=== PATIENT | female | born 2005 | race Caucasian/White ===

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

== ENCOUNTER 2025-03-14 10:58 | Outpatient (AMB) | payer OTHER, SELFPAY ==
--- NOTE | 2025-03-14 11:10 | MHC.OFFVIS ---
Vital Signs 03/14/25 11:11 Height 5 ft 7 in Weight 120 lb 5.958 oz BMI 18.9 BP 110/62 Blood Pressure Location Lt brachial Position Sitting Pulse 114 H Pulse Source Monitor Intake Visit Reasons: CHANGE CONTROL COORDINATOR/Dr. Swan/New onset tachycardia Intake Note: CHANGE CONTROL COORDINATOR/Beny/ New onset Tachy Inside Outside Sales Representative Required: No Accompanied by: Self / Same As Patient Allergies Penicillins Allergy (Severe, Verified 03/14/25 11:13) Anaphylaxis Medication List - Last Reconciled 03/14/25 by Bryan Gamino MD multivitamin 1 tab PO DAILY HPI Comments Details: 20-year-old female here for sinus tachycardia. She has been diagnosed with sinus tachycardia recently. This was during an office visit. She was initially asymptomatic but started feeling some palpitations afterwards. She has been watching her heart rate with Apple watch. She said when it started she had a COVID episode few weeks before that. She had approximately 3 episodes of COVID-19 infection. She occasionally gets dizzy and lightheaded. She is denying any chest discomfort but notices that when she exercises she gets out of breath. She is a student and is studying [employer] sciences. She said she lost weight approximately 2 years ago but never gained it back. She has some joint pains and her primary has refer her to rheumatology for further assessment. Her blood workup showed no anemia. Her thyroid profile is normal. [facility] Family History Maternal Grandfather Heart failure Bypass graft stenosis Social History Alcohol intake: never Patient Tobacco Use Status: Never used Tobacco Review of Systems Const Denies chills, Denies fatigue, Denies fever(s), Denies frequent falls, Denies weakness, Denies weight gain and Denies weight loss ENT Denies dizziness Card Denies chest pain, Denies leg edema, Denies lightheadedness, Denies palpitations, Denies dyspnea, Denies dyspnea on exertion and Denies orthopnea Resp Denies cough, Denies dyspnea and Denies dyspnea on exertion GI Denies bloating and Denies change in bowel habits Musc Denies muscle weakness, Denies numbness and Denies tingling Neuro Denies dizziness, Denies frequent falls, Denies numbness, Denies tingling and Denies weakness Endo Denies fatigue and Denies palpitations Physical Exam Vital Signs: Last Vital Signs Pulse 114 H 03/14/25 11:11 BP 110/62 03/14/25 11:11 BMI result Body Mass Index 18.9 GENERAL APPEARANCE: in no acute distress, anxious appearing. NECK: no carotid bruit, no jugular venous distention. SKIN: no suspicious lesions, warm and dry. HEART: no murmurs, regular rate and rhythm. LUNGS: clear to auscultation bilaterally. ABDOMEN: soft, nontender. EXTREMITIES: no edema. sweaty palms. PERIPHERAL PULSES: equal. NEUROLOGIC: No gross deficits, AAO X 3 Office Procedures EKG Details: Sinus tachycardia 114 beats per minute right axis deviation, nonspecific ST-T changes, QTC 427 milliseconds. 46877-[id number], Complete Assessment & Plan Assessment & Plan (1) Sinus tachycardia: Code(s): R00.0 - Tachycardia, unspecified Category: Medical (2) Palpitations: Code(s): R00.2 - Palpitations Category: Medical Plan Pleasant 20-year-old female here for tachycardia. Her EKGs showing sinus tachycardia with nonspecific T-wave changes. She does not have any chest discomfort. She has some dyspnea with activities. Off and on she gets dizziness. She notices that when she stands up her heart rate races further but it recovers quickly. She is saying that she hydrate herself. She had COVID-19 infection recently. I will check echocardiogram to assess LV and RV function. We will also arrange a 7 day Holter monitor to assess for any arrhythmia. We will also see if her heart rate changes in sleep or not. If she in fact has inappropriate sinus tachycardia then we can consider medications. I have advised her that she should increase her fluid intake and salt intake. I have also advised her to start exercising regularly and in particular do upright exercise like rowing machine. She will see us back in 3 months. Thank you for allowing me to participate in the care of your patient. Please feel free to contact me if you have any questions. Orders: Orders CA echo transthoracic complete Today R00.2 - Palpitations ECG 7 day holter monitor Today R00.2 - Palpitations Medications: Discontinued ondansetron Discontinued Reason: Patient no longer taking 4 mg PO Q6-8H PRN 7 tabs 0RF nausea and vomiting oxycodone Discontinued Reason: Patient no longer taking 2.5 mg (1/2 x 5 mg) PO BID PRN 6 caps 0RF pain prednisone Discontinued Reason: Patient no longer taking 30 mg (3 x 10 mg) PO DAILY 4 days 12 tabs 0RF tamsulosin (Flomax) Discontinued Reason: Patient no longer taking 0.4 mg PO DAILY 5 caps 0RF Coding Level of Care Code New Pt Level 4 (31352) Diagnoses Sinus tachycardia R00.0 Palpitations R00.2 CPT Codes EKG - CPT: 60593-[id number], Complete ([id number])
[2025-03-14 11:11] VITALS: BP 110/62; PULSE 114; BMI 18.9
--- OUTSIDE RECORDS SUMMARY | 2025-03-14 13:54 | XMS_ITS | Encounter Summary ---
Author Organization [facility] Address [address] [place] [address] Phone Care Team Providers Care Rubber Curer Name Role Phone Lisa Riggins MD Primary Care Provider [phone] Encounter Details Date Type Department Care Team (Late st Contact Info) Description 10/19/2014 Documentation [facility] [place] Family Medicine [address] [place] [address] Family Medicine, Physician [address] [place], [place] [address] Social History Tobacco Use Types Packs/Day Years [...] on filedocumented in this encounter Care Teams Rubber Curer Relationship Specialty Start Date End Date Lisa Riggins MD [address] [place] [address] DEANNA Devine [address] PCP - General 12/25/16 10/14/21 documented as of this encounter
--- OUTSIDE RECORDS SUMMARY | 2025-03-14 13:54 | XMS_ITS | Encounter Summary ---
Author Organization [facility] Address [address] [place] [address] Phone Care Team Providers Care Patrol Inspector Name Role Phone Lisa Riggins MD Primary Care Provider [phone] Encounter Details Date Type Department Care Team (Late st Contact Info) Description 10/19/2014 Documentation [facility] [place] Family Medicine [address] [place] [address] Family Medicine, Physician [address] [place], [place] [address] Social History Tobacco Use Types Packs/Day Years [...] on filedocumented in this encounter Care Teams Patrol Inspector Relationship Specialty Start Date End Date Lisa Riggins MD [address] [place] [address] DEANNA Devine [address] PCP - General 12/25/16 10/14/21 documented as of this encounter
--- OUTSIDE RECORDS SUMMARY | 2025-03-14 13:55 | XMS_ITS | Encounter Summary ---
Author Organization [facility] Address [address] [place] [address] Phone Care Team Providers Care Printer Floor Covering Assistant Name Role Phone Lisa Riggins MD Primary Care Provider [phone] Encounter Details Date Type Department Care Team (Late st Contact Info) Description 10/25/2015 [place] [facility] [place] [address] [place] [address] Family Medicine, Physician [address] [place], [place] [address] Social History Tobacco Use Types Packs/Day Years [...] on filedocumented in this encounter Care Teams Printer Floor Covering Assistant Relationship Specialty Start Date End Date Lisa Riggins MD [address] [place] [address] DEANNA Devine [address] PCP - General 12/25/16 10/14/21 documented as of this encounter
--- OUTSIDE RECORDS SUMMARY | 2025-03-14 13:55 | XMS_ITS | Encounter Summary ---
Author Organization [facility] Address [address] [place] [address] Phone Care Team Providers Care Refurbish Technician Name Role Phone Lisa Riggins MD Primary Care Provider [phone] Encounter Details Date Type Department Care Team (Late st Contact Info) Description 03/03/2012 Documentation [facility] [place] Family Medicine [address] [place] [address] Family Medicine, Physician [address] [place], [place] [address] Social History Tobacco Use Types Packs/Day Years [...] on filedocumented in this encounter Care Teams Refurbish Technician Relationship Specialty Start Date End Date Lisa Riggins MD [address] [place] [address] DEANNA Devine [address] PCP - General 12/25/16 10/14/21 documented as of this encounter
--- OUTSIDE RECORDS SUMMARY | 2025-03-14 13:55 | XMS_ITS | Patient Health Record ---
Author Organization [facility] Address [address] [place] [address] Care Team Providers Care Special Librarian Name Role Phone RONNIE MARTINEZ M.D Primary Care Provider Neena Germain Unavailable [phone] Allergies Allergen (clinical drug ingredient) Drug/Non Drug Allergy documented on EMR Reaction Allergy Type Onset Date Status Penicillin Unknown Drug Allergy Active Results Component Value Reference Range Notes Urinalysis Reviewed date:01/12/2025 02:13:57 PM Interpretation: Performing Lab: Notes/Report: PH 8.0 PROTEIN Trace GLUCOSE Neg BLOOD Neg Reason For Referral No Information Medications Medication SIG (Take, Route, Fr equency, Duration) Notes Start Date End Date Status Depo-Provera 150 MG/ML 150 MG Intramuscu lar EVERY 3 MONTHS; Duration: 90 days 01/13/2024 Active Multi-Vitamin - 1 tablet Orally Once a day Active Social History Tobacco Use: Social History [...] Status W/U Status Risk Notes Problem Dysmenorrhea ([id number]) Dysmenorrhea, unspecified (N94.6) Active confirmed Vital Signs Temperature 97.9 degrees Fahrenheit 01/12/2025 Blood pressure diastolic 72 mm Hg 01/12/2025 Height 66 in 01/12/2025 BMI Percentile 29.89 % 01/12/2025 Blood pressure systolic 122 mm Hg 01/12/2025 Weight 125 lbs 01/12/2025 BMI 20.17 kg/m2 01/12/2025 Encounters Encounter Location Date Provider Diagnosis [address] [address] 11/24/2024 Neena Danielle Encounter for surveillance of injectable contraceptive Z30.[address] [address] 01/12/2025 Neena Danielle Encounter for gynecological examination (general) (routine) without abnormal findings Z01.419 ; Encounter for surveillance of contraceptives, unspecified Z30.40 ; Dysmenorrhea, unspecified N94.6 and Other specified counseling Z71.[address] [address] 03/05/2025 Neena Danielle Dysmenorrhea, unspecified N94.6 Assessments Encounter Date Diagnosis (ICD Code) Assessment Notes Treatment Notes Treatment Clinical Notes Section Notes 11/24/2024 Encounter for surveillance of injectable contraceptive (ICD-10 - Z30.42) 01/12/2025 Encounter for gynecological examination (general) (routine) without abnormal findings (ICD-10 - Z01.419) NO PAP TEST YET. ADEQUATE CALCIUM AND VIT D. REGULAR EXERCISE WAS RECOMMENDED. PELVIC ULTRASOUND WAS ORDERED TO CHECK UTERUS AND OVARIES. 03/05/2025 Dysmenorrhea, unspecified (ICD-10 - N94.6) 01/12/2025 Encounter for surveillance of contraceptives, unspecified (ICD-10 - Z30.40) GAURAV HAS NEVER BEEN SEXUALLY ACTIVE AND DOES NOT NEED CONTRACEPTION AT THE PRESENT TIME. NEED FOR CONTRACETION WAS DISCUSSED WITH GAURAV. SHE WILL CALL US WHEN SHE BECOMES ACTIVE. 01/12/2025 Dysmenorrhea, unspecified (ICD-10 - N94.6) DISCUSSED [place] OPTIONS FOR DYSMENORRHEA. ADVISED GAURAV TO TAKE IBUPROFEN IMMEDIATELY WHEN SHE HAS ANY TWINGES OF PAIN. RECOMMENDED SHE CONSIDER CONTINUOUS OCP'S WHICH WILL ALSO PREVENT MENSES AND AVOID DYSMENORRHEA. SHE AGREED TO TRY. SHE WILL RETURN IN APR WHEN DEPO PROVERA SHOT IN FEB IS ABOUT TO AND WE WILL START OCP'S. I PLAN TO START HER ON KARIVA AND WILL GIVE HER DETAILED INSTRUCTIONS ON HOW TO GRADUALLY TAKE THIS CONTINUOUSLY. 01/12/2025 Other specified counseling (ICD-10 - Z71.89) SAFE SEX AND CAREFUL PARTNER SELECTION WERE DISCUSSED. Plan Of Treatment Pending Test Test Name Order Date Ultrasound : Pelvic 03/05/2025 Next Appt Details Provider Name:Neena murdock, 05/09/2025 10:20:00 AM, [address], [address], [place], [address], Provider Name:Neena murdock, 01/18/2026 01:40:00 PM, [address], [address], [place], [address], Insurance Providers Payer Name Payer Address Payer Phone Subscriber Number Group Number Insured Name Patient Relationship to Insured Coverage Start Date Coverage End Date [employer] [facility] [address] [address] [place] [address] [id number] BATSHEVA MARTÍNEZ Child - Insured has Financial Responsibility Medications Administered Medication Instructions Date of Administration Dosage Notes DEPO PROVERA 11/24/2024 150 mg Medical (General) History Medical History History ICD Code Cardiac murmur, unspecified R01.1 Dysmenorrhea, unspecified N94.6
--- OUTSIDE RECORDS SUMMARY | 2025-03-14 13:55 | XMS_ITS | Encounter Summary ---
Author Organization [facility] Address [address] [place] [address] Phone Care Team Providers Care Bioassayist Name Role Phone Lisa Riggins MD Primary Care Provider [phone] Encounter Details Date Type Department Care Team (Late st Contact Info) Description 11/18/2010 Documentation [facility] [place] Family Medicine [address] [place] [address] Family Medicine, Physician [address] [place] [address] Social History Tobacco Use Types [...] on filedocumented in this encounter Care Teams Bioassayist Relationship Specialty Start Date End Date Lisa Riggins MD [address] [place] [address] DEANNA Devine [address] PCP - General 12/25/16 10/14/21 documented as of this encounter
--- OUTSIDE RECORDS SUMMARY | 2025-03-14 13:55 | XMS_ITS | Encounter Summary ---
Author Organization [facility] Address [address] [place] [address] Phone Care Team Providers Care Sales Center Associate Name Role Phone Lisa Riggins MD Primary Care Provider [phone] Encounter Details Date Type Department Care Team (Late st Contact Info) Description 06/11/2015 Documentation [facility] [place] [address] [place] [address] Family Medicine, Physician [facility] [address] [place], [place] [address] Social History Tobacco Use Types Packs/Day Years [...] on filedocumented in this encounter Care Teams Sales Center Associate Relationship Specialty Start Date End Date Lisa Riggins MD [address] [place] [address] DEANNA Devine [address] PCP - General 12/25/16 10/14/21 documented as of this encounter
--- OUTSIDE RECORDS SUMMARY | 2025-03-14 13:55 | XMS_ITS | Encounter Summary ---
Author Organization [facility] Address [address] [place] [address] Phone Care Team Providers Care Inside Channel Account Manager Name Role Phone Lisa Riggins MD Primary Care Provider [phone] Encounter Details Date Type Department Care Team (Late st Contact Info) Description 11/12/2011 Documentation [facility] [place] Family Medicine [address] [place] [address] Family Medicine, Physician [address] [place], [place] [address] Social History Tobacco Use Types Packs/Day Years [...] on filedocumented in this encounter Care Teams Inside Channel Account Manager Relationship Specialty Start Date End Date Lisa Riggins MD [address] [place] [address] DEANNA Devine [address] PCP - General 12/25/16 10/14/21 documented as of this encounter
--- OUTSIDE RECORDS SUMMARY | 2025-03-14 13:55 | XMS_ITS | Encounter Summary ---
Author Organization [facility] Address [address] [place] [address] Phone Care Team Providers Care Heel Padder Name Role Phone Lisa Riggins MD Primary Care Provider [phone] Encounter Details Date Type Department Care Team (Late st Contact Info) Description 06/03/2012 Documentation [facility] [place] Family Medicine [address] [place] [address] Family Medicine, Physician [address] [place], [place] [address] Social History Tobacco Use Types Packs/Day Years [...] on filedocumented in this encounter Care Teams Heel Padder Relationship Specialty Start Date End Date Lisa Riggins MD [address] [place] [address] DEANNA Devine [address] PCP - General 12/25/16 10/14/21 documented as of this encounter
--- OUTSIDE RECORDS SUMMARY | 2025-03-14 13:55 | XMS_ITS | Encounter Summary ---
Author Organization [facility] Address [address] [place] [address] Phone Care Team Providers Care Nursing Tech Name Role Phone Lisa Riggins MD Primary Care Provider [phone] Encounter Details Date Type Department Care Team (Late st Contact Info) Description 10/28/2015 Documentation [facility] [place] Family Medicine [address] [place] [address] Family Medicine, Physician [facility] [place], [place] [address] Social History Tobacco Use Types Packs/Day Years [...] on filedocumented in this encounter Care Teams Nursing Tech Relationship Specialty Start Date End Date Lisa Riggins MD [address] [place] [address] DEANNA Devine [address] PCP - General 12/25/16 10/14/21 documented as of this encounter
--- OUTSIDE RECORDS SUMMARY | 2025-03-14 13:55 | XMS_ITS | Encounter Summary ---
Author Organization [facility] Address [address] [place] [address] Phone Care Team Providers Care Track Announcer Name Role Phone Lisa Riggins MD Primary Care Provider [phone] Encounter Details Date Type Department Care Team (Late st Contact Info) Description 09/04/2015 [place]ation [facility] [place] [address] [place] [address] Family Medicine, Physician [facility] [place] [address] Social History Tobacco Use Types Packs/Day Years [...] filedocumented in this encounter Care Teams Track Announcer Relationship Specialty Start Date End Date Lisa Riggins MD [address] [place] [address] DEANNA Devine [address] PCP - General 12/25/16 10/14/21 documented as of this encounter
--- OUTSIDE RECORDS SUMMARY | 2025-03-14 13:55 | XMS_ITS | Encounter Summary ---
Author Organization [facility] Address [address] [place] [address] Phone Care Team Providers Care Basting Marker Name Role Phone Lisa Riggins MD Primary Care Provider [phone] Encounter Details Date Type Department Care Team (Late st Contact Info) Description 11/10/2016 Documentation [facility] [place] Family Medicine [address] [place] [address] Family Medicine, Physician [facility] [place], [place] [address] Social History Tobacco Use Types Packs/Day Years [...] on filedocumented in this encounter Care Teams Basting Marker Relationship Specialty Start Date End Date Lisa Riggins MD [address] [place] [address] DEANNA Devine [address] PCP - General 12/25/16 10/14/21 documented as of this encounter
--- OUTSIDE RECORDS SUMMARY | 2025-03-14 13:55 | XMS_ITS | Encounter Summary ---
Author Organization [facility] Address [address] [place] [address] Phone Care Team Providers Care Diversified Crops Ii Farmworker Name Role Phone Lisa Riggins MD Primary Care Provider [phone] Encounter Details Date Type Department Care Team (Late st Contact Info) Description 10/11/2013 [place]ation [facility] [place] [address] [place] [address] Family Medicine, Physician [address] [place], [place] [address] Social History Tobacco Use Types Packs/Day Years [...] on filedocumented in this encounter Care Teams Diversified Crops Ii Farmworker Relationship Specialty Start Date End Date Lisa Riggins MD [address] [place] [address] DEANNA Devine [address] PCP - General 12/25/16 10/14/21 documented as of this encounter
--- OUTSIDE RECORDS SUMMARY | 2025-03-14 13:55 | XMS_ITS | Encounter Summary ---
Author Organization [facility] Address [address] [place] [address] Phone Care Team Providers Care Concrete Batching Plant Operator Name Role Phone Lisa Riggins MD Primary Care Provider [phone] Encounter Details Date Type Department Care Team (Late st Contact Info) Description 12/03/2014 [place]ation [facility] [place] [address] [place] [address] Family Medicine, Physician [address] [place], [place] [address] Social History Tobacco Use Types Packs/Day Years [...] on filedocumented in this encounter Care Teams Concrete Batching Plant Operator Relationship Specialty Start Date End Date Lisa Riggins MD [address] [place] [address] DEANNA Devine [address] PCP - General 12/25/16 10/14/21 documented as of this encounter
--- OUTSIDE RECORDS SUMMARY | 2025-03-14 13:55 | XMS_ITS | Clinical Summary ---
Author Organization [facility] Address [address] [place] [address] Care Team Providers Care Sports Team Manager Name Role Phone Lisa Riggins MD Primary Care Provider [phone] Source Comments Please note that some or all of the patient's information could have additional privacy protections. State laws allow health care providers to render certain types of treatment to minors without parental consent. Please do not assume that this information can be shared solely by obtaining just the consent of the patient's parent/guardian. Please determine if all or part of the patient's care was rendered without parent/guardian involvement. And, if so, obtain the minor's consent prior to disclosure.[facility] Allergies Active Allergy Reactions Criticality Noted Date Comments Penicillin 10/15/2021 Penicillins 04/16/2021 Medications acetaminophen 325 mg Capsule Take by mouth as needed Active ibuprofen 200 mg Capsule Take by mouth as needed Active ketoconazole (NIZORAL) 2 % shampoo APPLY TOPICALLY 2 (TWO) TIMES A WEEK. APPLY TO DAMP SKIN, LATHER, LEAVE ON 5 MINUTES, AND RINSE 12/01/19 21 Active ferrous sulfate (IRON ORAL) Take by mouth Active vitamin M20-xbkfx acid 0.5-1 mg Tablet 0 Refills, Maintenance, 08/06/21 13:06:00 EDT, Partial fill upon patient request if the prescription is for a schedule II opioid drug. 08/07/19 22 Active medroxyPROGEST ERone 150 mg/mL Syringe INJECT 1 ML INTRAMUSCULARLY EVERY 84 DAYS 08/13/19 22 Active citric acid-potassium citrate (POLYCITRA-K) 1,100-334 mg/5 mL solution Take by mouth 3 (three) times daily with meals Active potassium citrate (UROCIT-K) 15 mEq Tablet Extended Release extended release tabletIndicati ons:Calculus of kidney Take 2 tablets (30 mEq) by mouth 2 (two) times daily with meals 120 tablet 11 05/22/19 24 Active Hospital, Clinic, or Other Facility Administered Medication Ordered Dose Route Frequency Start Date End Date Status ondansetron (ZOFRAN-ODT) disintegrating tablet 4 mgIndications:Calculus of kidney 4 mg Oral Every 8 hours PRN 10/15/2021 Active Active Problems Patient Care Coordination No te Formatting of this note migh t be different from the original. Preferred Lab: [facility] [address] [place] [address] p: [phone] f: [phone] Problem Noted Date Diagnosed Date Right nephrolithiasis 10/15/2021 Left nephrolithiasis 04/16/2021 Family History Medical History Relation Name Comments Hypertension Mother Relation Name Status Comments Mother Social History Tobacco Use Types Packs/Day Years Used Date Smoking Tobacco: Never Smokeless Tobacco: Never Tobacco Cessation:Counseling Given: Not Answered Other Needs Answer Date Recorded Anything else about your child you'd like help w [facility]? Not on file 01/29/2023 Share good news about positive changes: Not on f ile 01/29/2023 Comments No Sex and Gender Information Value Date Recorded Sex Assigned at Not on file Legal Sex Female 3:11 PM EDT Gender Identity Not on file Sexual Orientation Not on file Last Filed Vital Signs Vital Sign Reading Time Taken Comments Blood Pressure 98/74 05/21/2023 10:58 AM EST Pulse 118 12/24/2022 11:48 AM EDT Temperature - - Respiratory Rate - - Oxygen Saturation 99% 10/15/2021 9:56 AM EDT Inhaled Oxygen Concentration - - Weight 56.5 kg (124 lb 9 oz) 05/21/2023 10:58 AM EST Height 167 cm (5' 5.75 ) 05/21/2023 10:58 AM EST Body Mass Index 20.26 05/21/2023 10:58 AM EST Plan of Treatment Health Maintenance Due Date Last Done Comments DTaP/TDAP/TD VACCINES (1 - Tdap) 01/04/2012 ADOLESCENT HIV SCREENING 2018 COVID-19 Vaccine (2023-2 5 season) 2025 INFLUENZA (#1) 2025 NIRSEVIMAB VACCINES UNDER 8 MONTHS Aged Out No longer eligible based on patient's age to complete this topic Insurance [employer] Care Teams Sports Team Manager Relationship Specialty Start Date End Date Lisa Riggins MD [address] [place] [address] ANAHI 1 DEANNA QUEZADA [phone] PCP - General General Pediatrics 02/24/21
--- OUTSIDE RECORDS SUMMARY | 2025-03-14 13:55 | XMS_ITS | Encounter Summary ---
Author Organization [facility] Address [address] [place] [address] Phone Care Team Providers Care Drier And Grinder Tender Name Role Phone Lisa Riggins MD Primary Care Provider [phone] Encounter Details Date Type Department Care Team (Late st Contact Info) Description 11/10/2016 Documentation [facility] [address] [place] [address] Family Medicine, Physician [facility] [place], [place] [address] Social History Tobacco Use Types Packs/Day Years [...] on filedocumented in this encounter Care Teams Drier And Grinder Tender Relationship Specialty Start Date End Date Lisa Riggins MD [address] [place] [address] DEANNA Devine [address] PCP - General 12/25/16 10/14/21 documented as of this encounter
--- OUTSIDE RECORDS SUMMARY | 2025-03-14 13:55 | XMS_ITS | Encounter Summary ---
Author Organization [facility] Address [address] [place] [address] Phone Care Team Providers Care Curing Room Worker Name Role Phone Lisa Riggins MD Primary Care Provider [phone] Encounter Details Date Type Department Care Team (Late st Contact Info) Description 03/18/2011 Documentation [facility] [facility] [address] [place] [address] Family Medicine, Physician [address] [place], [place] [address] Social History Tobacco Use Types Packs/Day Years [...] on filedocumented in this encounter Care Teams Curing Room Worker Relationship Specialty Start Date End Date Lisa Riggins MD [address] [place] [address] DEANNA Devine [address] PCP - General 12/25/16 10/14/21 documented as of this encounter
--- OUTSIDE RECORDS SUMMARY | 2025-03-14 13:55 | XMS_ITS | Encounter Summary ---
Author Organization [facility] Address [address] [place] [address] Phone Care Team Providers Care Content Engineer Name Role Phone Lisa Riggins MD Primary Care Provider [phone] Encounter Details Date Type Department Care Team (Late st Contact Info) Description 03/22/2013 Documentation [facility] [place] [facility] Family Medicine [address] [place] [address] Family Medicine, Physician [address] [place], [place] [address] Social History Tobacco Use Types Packs/Day Years [...] on filedocumented in this encounter Care Teams Content Engineer Relationship Specialty Start Date End Date Lisa Riggins MD [address] [place] [address] DEANNA Devine [address] PCP - General 12/25/16 10/14/21 documented as of this encounter
--- OUTSIDE RECORDS SUMMARY | 2025-03-14 13:55 | XMS_ITS | Clinical Summary ---
Author Organization [facility] Address [address] [place] [address] Phone Care Team Providers Care Campground Hand Name Role Phone Unavailable Primary Care Provider Unavailabl e Allergies Active Allergy Reactions Criticality Noted Date Comments Penicillins Medications Multiple Vitamin (MULTI VITAMIN DAILY PO) Multi Vitamin; 10/18/2014; Active 10/18/2014 Active Ibuprofen (MOTRIN IB PO) Take by mouth. Active Acetaminophen 325 MG capsule Take by mouth. Active medroxyPROGESTE Nick 150 MG/ML injection Inject 150 mg into the muscle every 3 (three) months. 12/03/2022 Active [place] Saline Nasal gelIndications: Epistaxis Apply nasally nightly 09/25/2024 Active Active Problems Problem Noted Date Diagnosed Date [...] Plan (09/27/2023 11:51 AM EDT): Follows with doughnut batter mixer at [facility]. Has had a few LithoLinks studies done (24 hr urine). Has f/u appt scheduled. Assessment & Plan (01/29/2022 2:00 PM EDT): Follows with doughnut batter mixer at [facility] - has new doc there. Has had [...] on wait list for neuropsych eval at [facility]. For over a year. Has [...] autism - will wait for OT and [facility] health to weigh in. Dysmenorrhea, unspecified 12/13/2019 Overview (01/29/2022): Very painful and heavy menses every other month. On DepoProvera since 04/2021, rx by DIRECTOR SEMICONDUCTOR at [facility]. Doing very well. Assessment & Plan (09/25/2024 2:43 PM EDT): On DepoProvera since 04/2021, rx by DIRECTOR SEMICONDUCTOR. Doing very well. Gets a little bleeding just when due for next shot, no significant cramping. Assessment & Plan (09/27/2023 11:51 AM EDT): On DepoProvera since 04/2021, rx by DIRECTOR SEMICONDUCTOR. Doing very well. Gets a little bleeding just when due for next shot, no significant cramping. Assessment & Plan (01/29/2022 1:59 PM EDT): On DepoProvera since 04/2021, rx by DIRECTOR SEMICONDUCTOR at [facility]. Doing very well. Gets a little bleeding [...] back, clothing textures, foods. Had eval at [facility] Waiting on neuropsych testing 01/29/2022 Main concern is possible autism spectrum - on wait list for neuropsych eval at [facility]. For over a year. Has a lot [...] not getting OT, awaiting neuropsych eval at [facility] - on wait list x > 1 [...] vision screen 12/06/2018 022 Overview (12/13/2019): Saw neo last week. Being followed for decrease vision [...] Encounters Date Type Department Care Team Description 12/28/2024 Telephone [facility] - [address] [address] Cadence Swan MD Medical Records from Last 3 Months Immunizations Immunization Administration [...] Maternal Grandmother Arthritis Maternal Grandmother Cancer Mother Nayeli Genetelli Hyperlipidemia Mother Nayeli Genetelli Hypertension Mother Nayeli Genetelli Hypothyroidism Mother Nayeli Genetelli Migraines Mother Nayeli Genetelli Obesity Mother Nayeli Genetelli Hypertension Paternal Grandfather Macular degeneration Paternal Grandfather Arthritis Paternal Grandmother Heart disease Paternal Grandmother Macular degeneration Paternal Grandmother Relation Name Status Comments Father Batsheva Lara Alive Father: Alive and well Maternal Grandfather Materna l grandfather: Hyperlipidemia, *CVA/Stroke, Heart disease, Arthritis Maternal Grandmother Materna l grandmother: Arthritis, Rheumatic fever Mother Nayeli Genetelli Alive Mother: Heidi stein and well Other 1 Family history of Migraines, Family history of Alzheimer's disease Other 2 Family history of Migraines, Family history of Alzheimer's disease Paternal Grandfather Alive Paterzen l grandfather: Hypertension Paternal Grandmother Alive Paterna [...] 124 09/25/2024 2:29 PM EDT Temperature 37.2 C (99 F) 09/25/2024 1:43 PM EDT Respiratory Rate 20 06/27/2018 1:08 PM EST Oxygen Saturation - - Inhaled Oxygen Concentration - - Weight 54.6 kg (120 lb 6 oz) 09/25/2024 1:43 PM EDT Height 166.4 cm (5' 5.5 ) 09/25/2024 1:43 PM EDT Body Mass Index 19.73 09/25/2024 1:43 PM EDT Plan of Treatment Health Maintenance Due Date Last Done Comments COVID-19 Vaccine (6 2024-2 6 season) 2025 09/27/2023, 01/12/2023, 09/01/2021, Additional history exists DTaP,Tdap,and Td Vaccines (7 - Td or [...] Vaccine Completed 08/03/2022, 01/29/2022 Influenza Vaccines Completed 12/27/2024, 0 01/28/2024, 01/12/2023, Additional history exists Procedures * Due to [employer] law, this organization might not be sharing sensitive test results. Procedure Name Priority Date/Time Associated Diagnosis Comments CHLAMYDIA AND GONORRHEA, AMPLIFIED Routine 09/25/2024 2:29 PM EDT Special screening examination for chlamydial disease from Last 3 Months or Most Recently Relevant to Health Maintenance Results * Due to [facility] law, this organization might not be sharing sensitive test results. * Chlamydia and Gonorrhoea, Amplified (09/25/2024 2:29 PM EDT) C trach JASWINDER Negative Negative [facility] N gonorrhoeae JASWINDER Negative Negative [facility] Urine (Urine) 09/25/2024 2:2 9 PM EDT 09/25/2024 Comment:Urine Narrative [facility] - 09/27/2024 6:05 PM EDT Performed at: - [address], [address], [place], [place] [id number] Medical Oncology Physician: Dean Wright MD, Phone: [phone] us Cadence Swan MD LAB MICROBIOLOGY - GENERAL ORD ERABLES Final Result [facility] [address] [place] [address] from Last 3 Months or Most Recently Relevant to Health Maintenance Insurance [employer] [place] [employer] [facility]
--- OUTSIDE RECORDS SUMMARY | 2025-03-14 13:55 | XMS_ITS | Encounter Summary ---
Author Organization [facility] Address [address] [place] [address] Phone Care Team Providers Care Capacity Planning Analyst Name Role Phone Lisa Riggins MD Primary Care Provider [phone] Encounter Details Date Type Department Care Team (Late st Contact Info) Description 12/31/2016 Conversion Encounter [facility] [place] [address] [place] [address] Social History Tobacco Use Types Packs/Day Years [...] on filedocumented in this encounter Care Teams Capacity Planning Analyst Relationship Specialty Start Date End Date Lisa Riggins MD [address] [place] [address] PCP - General 12/25/16 10/14/21 documented as of this encounter
--- OUTSIDE RECORDS SUMMARY | 2025-03-14 13:55 | XMS_ITS | Encounter Summary ---
Author Organization [facility] Address [address] [place] [address] Phone Care Team Providers Care Practical Nurse Clinical Coordinator Name Role Phone Lisa Riggins MD Primary Care Provider [phone] Encounter Details Date Type Department Care Team (Late st Contact Info) Description 10/04/2015 Documentation [facility] Family Medicine [address] [place] [address] Family Medicine, Physician [facility] [place], [place] [address] Social History Tobacco Use Types Packs/Day Years [...] on filedocumented in this encounter Care Teams Practical Nurse Clinical Coordinator Relationship Specialty Start Date End Date Lisa Riggins MD [address] [place] [address] DEANNA Devine [address] PCP - General 12/25/16 10/14/21 documented as of this encounter
--- OUTSIDE RECORDS SUMMARY | 2025-03-14 13:55 | XMS_ITS ---
[facility] Results Test Name/Text Value Interpretation Date Range Source Glucose Ur Ql Strip Negative Normal 05/21/2023 - [facility] pH Ur Strip 5.5 Normal 05/21/2023 5 - 8 [facility] Leukocyte esterase Ur Ql Strip Small Abnormal 05/21/2023 - [facility] Color Ur Yellow Normal 05/21/2023 [facility] Bilirub Ur Ql Strip Negative Normal 05/21/2023 - [facility] Prot Ur Ql Strip Negative Normal 05/21/2023 - [facility] Clarity Ur Cloudy Normal 05/21/2023 [facility] Hgb Ur Ql Strip Negative Normal 05/21/2023 - [facility] Nitrite Ur Ql Strip Negative Normal 05/21/2023 - [facility] Sp Gr Ur Strip 1.02 Normal 05/21/2023 1.003 - 1.03 [facility] Urobilinogen Ur Strip 0.2 E.U./dL Normal 05/21/2023 0.2 - 1 [facility] POCT URINE AUTO LOT [id number] NA Normal 05/21/2023 [facility] Ketones Ur Strip Negative Normal 05/21/2023 - [facility] History of Medication Use Medication Directions Dispensed Refills Start Date End Date Status potassium citrate (UROCIT-K) 15 mEq Tablet Extended Release extended release tablet Take 2 tablets (30 mEq) by mouth 2 (two) times daily with meals 4 05/22/19 25 active cholecalciferol (VITAMIN D3) 25 mcg (1,000 unit) capsule Take 1 capsule (1,000 Units) by mouth daily 3 07/10/19 24 active cholecalciferol (VITAMIN D3) 25 mcg (1,000 unit) capsule Take 1 capsule (1,000 Units) by mouth daily 3 07/10/19 24 active ondansetron (ZOFRAN-ODT) disintegrating tablet 4 mg 2 10/16/19 22 active ondansetron (ZOFRAN-ODT) disintegrating tablet 4 mg 2 active levonorgestrel-ethinyl estradiol (SEASONALE) 0.15 mg-30 mcg (91) per tablet Take 1 tablet by mouth daily 2 10/16/19 22 aborted medroxyPROGESTERone 150 mg/mL Syringe INJECT 1 ML INTRAMUSCULARLY EVERY 84 DAYS 2 active medroxyPROGESTERone 150 mg/mL Syringe INJECT 1 ML INTRAMUSCULARLY EVERY 84 DAYS 2 active calcium citrate (CALCITRATE) 200 mg (950 mg) tablet Take by mouth 2 10/16/19 22 aborted ghij-RR-ysv-epa-FAD-NAD H-be-mv 1.5 mg iron- 8.73 mg capsule,IR & delay rel,biphase Iron, Refills 0, Maintenance, 08/06/21 13:09:00 EDT, Supply 2 10/16/19 22 aborted norethindrone-ethinyl estradiol (FEMHRT 1/5) 1-5 mg-mcg Tablet control, Refills 0, Maintenance, 08/06/21 13:09:00 EDT, Supply 2 10/16/19 22 aborted vitamin D98-lqrqm acid 0.5-1 mg Tablet 0 Refills, Maintenance, 08/06/21 13:06:00 EDT, Partial fill upon patient request if the prescription is for a schedule II opioid drug. 2 active vitamin Z11-kjfra acid 0.5-1 mg Tablet 0 Refills, Maintenance, 08/06/21 13:06:00 EDT, Partial fill upon patient request if the prescription is for a schedule II opioid drug. 2 active potassium citrate (UROCIT-K) 15 mEq Tablet Extended Release extended release tablet Take 2 tablets (30 mEq) by mouth 2 (two) times daily with meals 2 07/18/19 23 active cholecalciferol, vitamin D3, 50 mcg (2,000 unit) capsule Take 2 capsules (4,000 Units) by mouth daily 12/09/202 1 02/23/20 23 aborted L norgest/e.estradioL-e.e strad 0.15 mg-30 mcg (84)/10 mcg (7) Tablet, Dose Pack, 3 Months Take 1 tablet by mouth daily 1 10/16/19 22 active oxyCODONE (ROXICODONE) 5 MG immediate release tablet 1 05/22/19 24 aborted tamsulosin (FLOMAX) 0.4 mg Capsule Take by mouth 1 05/22/19 24 active ondansetron (ZOFRAN-ODT) 4 MG disintegrating tablet DISSOLVE 1 TABLET BY MOUTH EVERY 6 TO 8 HOURS NEEDED FOR NAUSEA AND VOMITING 1 10/16/19 22 active predniSONE (DELTASONE) 10 MG tablet TAKE 3 TABLETS BY MOUTH DAILY FOR 4 DAYS 1 10/16/19 22 aborted oxyCODONE (ROXICODONE) 5 MG immediate release tablet 1 active tamsulosin (FLOMAX) 0.4 mg Capsule Take by mouth 1 active ketoconazole (NIZORAL) 2 % shampoo APPLY TOPICALLY 2 (TWO) TIMES A WEEK. APPLY TO DAMP SKIN, LATHER, LEAVE ON 5 MINUTES, AND RINSE 1 active ketoconazole (NIZORAL) 2 % shampoo APPLY TOPICALLY 2 (TWO) TIMES A WEEK. APPLY TO DAMP SKIN, LATHER, LEAVE ON 5 MINUTES, AND RINSE 1 active acetaminophen 325 mg Capsule Take by mouth as needed active acetaminophen 325 mg Capsule Take by mouth as needed active citric acid-potassium citrate (POLYCITRA-K) 1,100-334 mg/5 mL solution Take by mouth 3 (three) times daily with meals active ferrous sulfate (IRON ORAL) Take by mouth active ibuprofen 200 mg Capsule Take by mouth as needed active ibuprofen 200 mg Capsule Take by mouth as needed active Allergies Allergen Reaction Severity Comment Documented Date Source Statu s PENICILLIN 10/15/2021 [facility] active PENICILLINS 04/16/2021 [facility] active Problems Problem Status Onset Date Problem Type Date of Resolution Source Vitamin D deficiency active Encounter[facility]osis[facility] Right nephrolithiasis active 2021-10-[address] [facility] Encounters Encounter Type Encounter Reason Primary Diagnosis Location Date Ambulatory Calculus of kidney Calculus of kidney [facility] ([facility]) 05/21/2023 Ambulatory Calculus of kidney Calculus of kidney [facility] ([facility]) 12/24/2022 Ambulatory [facility] 07/12/2022 Ambulatory [facility] 06/25/2022 Ambulatory [facility] 01/22/2022 [facility] 10/16/2021 Ambulatory [facility] 10/08/2021 Ambulatory [facility] 10/07/2021 [facility] 07/17/2021 [facility] 07/11/2021 Care Team Organization Name Specialty Phone Email Start Date End Da te [facility] ([facility]) LISA RIGGINS Primary Care 05/21/202309/2023 [facility] Lisa Riggins Primary Care 12/24/20222024 [facility] Lisa Riggins Primary Care 01/23/2022
--- OUTSIDE RECORDS SUMMARY | 2025-03-14 13:55 | XMS_ITS | Encounter Summary ---
Author Organization [facility] Address [address] [place] [address] Phone Care Team Providers Care Lane Attendant Name Role Phone Lisa Riggins MD Primary Care Provider [phone] Encounter Details Date Type Department Care Team (Late st Contact Info) Description 11/09/2011 Documentation [facility] Family Medicine [address] [place] [address] Family Medicine, Physician [address] [place], [place] [address] Social History Tobacco Use Types Packs/Day Years [...] on filedocumented in this encounter Care Teams Lane Attendant Relationship Specialty Start Date End Date Lisa Riggins MD [address] [place] [address] DEANNA Devine [address] PCP - General 12/25/16 10/14/21 documented as of this encounter
--- OUTSIDE RECORDS SUMMARY | 2025-03-14 13:55 | XMS_ITS | Encounter Summary ---
Author Organization [facility] Address [address] [place] [address] Phone Care Team Providers Care Hydro Plant Site Manager Name Role Phone Lisa Riggins MD Primary Care Provider [phone] Encounter Details Date Type Department Care Team (Late st Contact Info) Description 11/10/2016 Documentation [facility] Family Medicine [address] [place] [address] Family Medicine, Physician [facility] [place] [address] Social History Tobacco Use Types Packs/Day Years [...] on filedocumented in this encounter Care Teams Hydro Plant Site Manager Relationship Specialty Start Date End Date Lisa Riggins MD [address] [place] [address] DEANNA Devine [address] PCP - General 12/25/16 10/14/21 documented as of this encounter
--- OUTSIDE RECORDS SUMMARY | 2025-03-14 13:55 | XMS_ITS | Encounter Summary ---
Author Organization [facility] Address [address] [place] [address] Phone Care Team Providers Care Calcine Furnace Loader Name Role Phone Lisa Riggins MD Primary Care Provider [phone] Encounter Details Date Type Department Care Team (Late st Contact Info) Description 09/09/2015 Documentation [facility] Family Medicine [address] [place] [address] Family Medicine, Physician [facility] [place], [place] [address] Social History Tobacco Use Types Packs/Day Years [...] on filedocumented in this encounter Care Teams Calcine Furnace Loader Relationship Specialty Start Date End Date Lisa Riggins MD [address] [place] [address] DEANNA Devine [address] PCP - General 12/25/16 10/14/21 documented as of this encounter
--- OUTSIDE RECORDS SUMMARY | 2025-03-14 13:55 | XMS_ITS | Encounter Summary ---
Author Organization [facility] Address [address] [place] [address] Phone Care Team Providers Care Window Sash Installer Name Role Phone Lisa Riggins MD Primary Care Provider [phone] Encounter Details Date Type Department Care Team (Late st Contact Info) Description 10/06/2013 Documentation [facility] Family Medicine [address] [place] [address] Family Medicine, Physician [address] [place], [place] [address] Social History Tobacco Use Types Packs/Day Years [...] on filedocumented in this encounter Care Teams Window Sash Installer Relationship Specialty Start Date End Date Lisa Riggins MD [address] [place] [address] DEANNA Devine [address] PCP - General 12/25/16 10/14/21 documented as of this encounter
--- OUTSIDE RECORDS SUMMARY | 2025-03-14 13:55 | XMS_ITS | Encounter Summary ---
Author Organization [facility] Address [address] [place] [address] Care Team Providers Care Washcloth Folder Name Role Phone Lisa Riggins MD Primary Care Provider [phone]- [phone] Reason for Visit * Reason Comments Medication Refill Encounter Details Date Type Department Care Team (Late st Contact Info) Description 10/19/2021 Refill [facility], Department of Nephrology [address] [place] [address] [phone] Amor Marti MD [address] [facility] [address] Calculus of kidney; Vitamin D deficiency Social [...] deficiency documented in this encounter Care Teams Washcloth Folder Relationship Specialty Start Date End Date Lisa Riggins MD [address] [place] [address] [address] DE[place] QUEZADA [phone] PCP - General General Pediatrics 02/24/21 documented as of this encounter
--- OUTSIDE RECORDS SUMMARY | 2025-03-14 13:55 | XMS_ITS | Encounter Summary ---
Author Organization [facility] Address [address] [place] [address] Phone Care Team Providers Care Mammography Tech Name Role Phone Lisa Riggins MD Primary Care Provider [phone] Encounter Details Date Type Department Care Team (Late st Contact Info) Description 11/18/2010 Documentation [facility] [place] [address] [place] [address] Family Medicine, Physician [address] [place] [address] Social History Tobacco Use Types [...] on filedocumented in this encounter Care Teams Mammography Tech Relationship Specialty Start Date End Date Lisa Riggins MD [address] [place] [address] DEANNA Devine [address] PCP - General 12/25/16 10/14/21 documented as of this encounter
--- OUTSIDE RECORDS SUMMARY | 2025-03-14 13:55 | XMS_ITS | Encounter Summary ---
Author Organization [facility] Address [address] [place] [address] Phone Care Team Providers Care Pump Assembler Name Role Phone Lisa Riggins MD Primary Care Provider [phone] Encounter Details Date Type Department Care Team (Late st Contact Info) Description 07/15/2016 Documentation [facility] [place] [address] [place] [address] Family Medicine, Physician [facility] [place] [place] [address] Social History Tobacco Use Types Packs/Day Years [...] on filedocumented in this encounter Care Teams Pump Assembler Relationship Specialty Start Date End Date Lisa Riggins MD [address] [place] [address] DEANNA Devine [address] PCP - General 12/25/16 10/14/21 documented as of this encounter
--- OUTSIDE RECORDS SUMMARY | 2025-03-14 13:55 | XMS_ITS | Encounter Summary ---
Author Organization [facility] Address [address] [place] [address] Phone Care Team Providers Care Shank Turner Name Role Phone Lisa Riggins MD Primary Care Provider + [phone] Reason for Visit * Reason Comments Med Refill Encounter Details Date Type Department Care Team (Late st Contact Info) Description 09/30/2021 Refill [facility] [place] [address] [place] [address] Lisa Riggins MD [address] [place] [address] Menses painful Social History Tobacco Use Types [...] Dysmenorrhea documented in this encounter Care Teams Shank Turner Relationship Specialty Start Date End Date Lisa Riggins MD [address] [place] [address] DEANNA Devine [address] PCP - General 12/25/16 10/14/21 documented as of this encounter
--- OUTSIDE RECORDS SUMMARY | 2025-03-14 13:55 | XMS_ITS | Encounter Summary ---
Author Organization [facility] Address [address] [place] [address] Phone Care Team Providers Care Cruise Director Name Role Phone Lisa Riggins MD Primary Care Provider [phone] [phone] Encounter Details Date Type Department Care Team (Late st Contact Info) Description 02/08/2014 [place] [facility] [place] [address] [place] [address] Family Medicine, Physician On license of [facility] [address] [place], [place] [address] Social History Tobacco Use Types Packs/Day Years [...] on filedocumented in this encounter Care Teams Cruise Director Relationship Specialty Start Date End Date Lisa Riggins MD [address] [place] [address] DEANNA Devine [address] PCP - General 12/25/16 10/14/21 documented as of this encounter
--- OUTSIDE RECORDS SUMMARY | 2025-03-14 13:55 | XMS_ITS | Encounter Summary ---
Author Organization [facility] Address [address] [place] [address] Phone Care Team Providers Care Graphic Art Designer Name Role Phone Lisa Riggins MD Primary Care Provider [phone] Encounter Details Date Type Department Care Team (Late st Contact Info) Description 02/08/2014 Documentation [facility] [place] [address] [place] [address] Family Medicine, Physician [facility] [address] [place], [place] [address] Social History Tobacco Use Types Packs/Day Years [...] on filedocumented in this encounter Care Teams Graphic Art Designer Relationship Specialty Start Date End Date Lisa Riggins MD [address] [place] [address] DEANNA Devine [address] PCP - General 12/25/16 10/14/21 documented as of this encounter
== END 2025-03-14 11:47 | disposition home or self-care (01) ==
LOC: HO.HCS 10:59
PROVIDERS: PCP Pediatrics Adolescent Medicine; Visit Provider Internal Medicine Cardiovascular Disease
DX: R00.0 Tachycardia, unspecified (principal); R00.2 Palpitations
CPT/HCPCS: 93010; 99204

== ENCOUNTER → 2025-03-14 10:58 | Outpatient (BNVA) | payer OTHER, SELFPAY | PROVIDERS: PCP Pediatrics Adolescent Medicine; Visit Provider Internal Medicine Cardiovascular Disease | DX: R00.0 Tachycardia, unspecified (principal); R00.2 Palpitations | CPT/HCPCS: 93005 ==

== ENCOUNTER 2025-03-29 12:15 | Outpatient (AMB) | payer OTHER, SELFPAY ==
--- NOTE | 2025-03-29 12:32 | A.OFFPC_ITS ---
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 Pt had Physical in September of this year. Allergies Penicillins Allergy (Severe, Verified 03/29/25 12:34) Anaphylaxis Medication List - Last Reconciled 03/29/25 by AMRIT Dong- multivitamin 1 tab PO DAILY Tobacco use date assessed: 03/29/25 Dental Screening Dental Screen Date: 03/29/25 Did you have a dental visit in the last 12 months?: Yes Did you have a dental problem in the last 6 months where you did not have access to dental care?: No Was dental information given to patient?: Patient has dentist HPI POLISHER IMPLANT, EST CARE - PE HPI Details History of Present Illness The patient is a 20-year-old female presenting for her first primary care appointment in an adult setting. She has a history of sinus tachycardia, for which she is undergoing a workup by cardiology, and also reports have some anxieties. She is not currently taking any medications and reports doing well overall. Her power tong operator has ordered a 7-day Holter monitor and an echocardiogram as part of her evaluation. Health Maintenance The patient will have fasting labs drawn in the near future to establish baseline health status. 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 - Eyes: Denies blurred vision. - Cardiovascular: Denies chest pain. - Respiratory: Denies shortness of breat h. - Gastrointestinal: Denies abdominal ximena n, blood in stool, constipation, and diarrhea. - Psychiatric: Reports significant anxie ty but denies suicidal or homicidal ideation. Physical Exam General: Cooperative, healthy appearing, comfortable, no acute distress and well developed Orientation: Patient oriented x3 Limitations: No limitations Head: Normal to inspection Ears: Hearing grossly normal bilaterally Nose: Normal external nose present Face and sinus: Normal facial exam Eyes: Appearance normal, both eyes and all related structures Neck: Normal visual inspection and Yes full ROM Respiratory: Normal respiratory effort and able to speak in complete sentences. Clear to auscultation bilaterally Cardiovascular: Regular rate and rhythm. Normal S1 and S2 GI: Normal to inspection. Soft to palpation and nontender Skin: No rashes or lesions noted Neuro: Patient oriented x3 Extremities: Normal to inspection Results Plan 1. Sinus Tachycardia The patient is undergoing a workup by cardiology for sinus tachycardia. Her power tong operator has ordered a 7-day Holter monitor and an echocardiogram. 2. Anxiety The patient has a history of significant anxiety but is not currently on any medications for it and reports doing well. 3. physical exam Discussion Notes This was a new patient visit for a 20-year-old female establishing primary care. I noted her ongoing cardiology workup for sinus tachycardia, which includes a 7- day Holter monitor and an echocardiogram, as well as her history of anxiety. We discussed that she will obtain fasting labs in the near future. Patient Instructions - You are currently being evaluated by a photo print specialist (power tong operator) for a fast heart rate. - Your power tong operator has ordered a 7-day Holter monitor and an echocardiogram as part of this evaluation. - Please get fasting blood work done in the near future. [facility] Surgical History No pertinent past surgical history Family History Maternal Grandfather Heart failure Bypass graft stenosis Father No problems noted. Mother No problems noted. Social History Housing: House Alcohol intake: never Patient Tobacco Use Status: Never used Tobacco e-Cigarette/Vaping Use: Never Used Second Hand Smoke Exposure: Yes service: No Current occupational status: employed and student Cognitive needs: No Hearing needs: No Vision needs: Yes Questionnaire PHQ-9 Over the last 2 weeks, how often have you been bothered by any of the following problems? 1. Little interest or pleasure in doing things: not at all 2. Feeling down, depressed, or hopeless: not at all 3. Trouble falling or staying asleep, or sleeping too much: not at all 4. Feeling tired or having little energy: several days 5. Poor appetite or overeating: not at all 6. Feeling bad about yourself - or that you are a failure or have let yourself or your family down: not at all 7. Trouble concentrating on things, such as reading the newspaper or watching television: not at all 8. Moving or speaking so slowly that other people could have noticed. Or the opposite - being so fidgety or restless that you have been moving around a lot more than usual: not at all 9. Thoughts that you would be better off or of hurting yourself in some way: not at all Total score: 1 Depression Screening Interpretation: Negative Depression Screening Done: Yes 31900 - PHQ-9 Billing: Yes Source: Developed by Drs. Gil Wilson, Hollie Cornelius, Miguel Gordillo and colleagues, with an educational snehal from [employer]. Thrive Questionnaire Date Thrive assessed: 03/29/25 I am a: Patient What is your living situation today?: I have a steady place to live Within the past 12 months, did the food you bought not last and you didn't have the money to get more?: Never true Within the past 12 months, did you worry whether your food would run out before you got money to buy more?: Never true Do you have trouble paying for medicines?: No Do you have trouble getting transportation to medical appointments?: No Do you have trouble paying your heating and electricity bill?: No Do you have trouble taking care of your child, family member or friend?: No Do you have trouble with day-to-day activities such as bathing, preparing meals, shopping, managing finances, etc.?: No Are you currently unemployed and looking for a job?: No Are you interested in more education?: No Please select the resources that you would like help with: None Currently or been in a relationship where the following occur: No concerns reported THRIVE Score: 0 AUDIT C Alcohol Use Questionnaire (AUDIT-C) 1. How often do you have a drink containing alcohol?: Never 3. How often do you have six or more drinks on one occasion?: Never Total Score: 0 GEOVANI-7 AMB Questionnaire GEOVANI-7 Date GEOVANI - 7 assessed: 03/29/25 Feeling nervous, anxious, or on edge: 1 = Several days Not being able to stop or control worryin = Not at all Worrying too much about different things: 1 = Several days Trouble relaxin = Not at all Being so restless that it is hard to sit still: 0 = Not at all Becoming easily annoyed or irritable: 1 = Several days Feeling afraid as if something awful might happen: 0 = Not at all Total GEOVANI-7 score (0-4 normal; 5-9 mild; 10-14 moderate; 15-21 severe): 3 Source: Developed by Drs. Gil Wilson, Hollie Cornelius, Miguel Gordillo and colleagues, with an educational snehal from [employer]. GEOVANI-7 Assessment Billing GEOVANI-7 Assessment Tool: GEOVANI-7 Assessment 81902 Physical exam (Primary Care) Vital Signs: Last Vital Signs Temp 98.4 F 03/29/25 12:33 Pulse 113 H 03/29/25 12:33 BP 110/70 03/29/25 12:33 Pulse Ox 99 03/29/25 12:33 Oxygen Delivery Method Room Air 03/29/25 12:33 BMI result Body Mass Index 19.1 Tobacco/Smoking Status: Tobacco use Status Tobacco use date assessed 03/29/25 03/29/25 12:40 Patient Tobacco Use Status Never used Tobacco 03/29/25 12:40 e-Cigarette/Vaping Use Never Used 03/29/25 12:40 PHQ-9: PHQ-9 Score PHQ-9: Total score 1 03/29/25 12:40 Depression Screening Interpretation: Negative Thrive Assessment: Date of Thrive Assessment Date Thrive assessed 03/29/25 03/29/25 12:40 Currently or been in a relationship where the following occur: No concerns reported Coding Level of Care Code New Pt Prev Care 18-39yr(40044 Diagnoses Physical exam Z00. Additional Codes GEOVANI-7 Assessment Billing - GEOVANI-7 Assessment Tool: GEOVANI-7 Assessment 41322 ([id number]) PHQ-9 - 94833 - PHQ-9 Billing: Yes ([id number]) Assessment & Plan Assessment & Plan (1) Physical exam: Code(s): Z00.00 - Encounter for general adult medical examination without abnormal findings Category: Medical Plan . Orders: Orders Complete Blood Count Auto Diff Today Z00.00 - Encounter for general adult me dical examination without abnormal findings UA CC w/rflx Micro + Cult Today Z00.00 - Encounter for general adult medical examination without abnormal findings Comprehensive [place]. Panel Fast Today Z00.00 - Encounter for general adult medical examination without abnormal findings TSH reflex Free T4 Today Z00.00 - Encounter for general adult medical examination without abnormal findings Lipid Panel Today Z00.00 - Encounter for general adult medical examination without abnormal findings
[2025-03-29 12:33] VITALS: BP 110/70; PULSE 113; TEMP 36.9; O2SAT 99; BMI 19.1
--- OUTSIDE RECORDS SUMMARY | 2025-03-29 15:27 | XMS_ITS | Clinical Summary ---
Author Organization [facility] Address [address] [place] [address] Phone Care Team Providers Care Lead Etl Developer Name Role Phone Unavailable Primary Care Provider [...] muscle every 3 (three) months. 12/03/2022 Active [place] Saline Nasal gelIndications: Epistaxis Apply nasally nightly [...] Plan (09/27/2023 11:51 AM EDT): Follows with flame cutting machine operator helper at [facility]. Has had a few LithoL[employer] studies done (24 hr urine). Has f/u appt scheduled. Assessment & Plan (01/29/2022 2:00 PM EDT): Follows with flame cutting machine operator helper at [facility] - has new doc there. Has had [...] on wait list for neuropsych eval at [facility]. For over a year. Has a [...] autism - will wait for OT and [facility] health to weigh in. Dysmenorrhea, unspecified 12/13/2019 Overview (01/29/2022): Very painful and heavy menses every other month. On DepoProvera since 04/2021, rx by LICENSED JOURNEYMAN ELECTRICIAN at [facility]. Doing very well. Assessment & Plan (09/25/2024 2:43 PM EDT): On DepoProvera since 04/2021, rx by LICENSED JOURNEYMAN ELECTRICIAN. Doing very well. Gets a little bleeding just when due for next shot, no significant cramping. Assessment & Plan (09/27/2023 11:51 AM EDT): On DepoProvera since 04/2021, rx by [employer]ICENSED JOURNEY[employer] ELECTRICIAN. Doing very well. Gets a little bleeding just when due for next shot, no significant cramping. Assessment & Plan (01/29/2022 1:59 PM EDT): On DepoProvera since 04/2021, rx by LICENSED JOURNEYMAN ELECTRICIAN at [facility]. Doing very well. Gets a little bleeding [...] back, clothing textures, foods. Had eval at [place] [facility] Waiting on neuropsych testing 01/29/2022 Main concern is possible autism spectrum - on wait list for neuropsych eval at [facility]. For over a year. Has a [...] not getting OT, awaiting neuropsych eval at [facility] - on wait list x > 1 [...] Type Department Care Team Description 12/28/2024 Telephone [facility] - [address] [address] Cadence Swan MD Medical Records [...] Additional history exists Procedures * Due to [place] [employer] law, this organization might not be sharing sensitive test results. Procedure Name Priority Date/Time Associated Diagnosis Comments CHLAMYDIA AND GONORRHEA, AMPLIFIED Routine 09/25/2024 2:29 PM EDT Special screening examination for chlamydial disease from Last 3 Months or Most Recently Relevant to Health Maintenance Results * Due to [facility] law, this organization might not be sharing sensitive test results. * Chlamydia and Gonorrhoea, Amplified (09/25/2024 2:29 PM EDT) C trach JASWINDER Negative Negative [facility] N gonorrhoeae JASWINDER Negative Negative [facility] Urine (Urine) 09/25/2024 2:2 9 PM EDT 09/25/2024 Comment:Urine Narrative [facility] - 09/27/2024 6:05 PM EDT Performed at: - [address], [address], [place], [place] [id number] Highway Patrol Officer: Dean Wright MD, Phone: [phone] us Cadence Swan MD LAB MICROBIOLOGY - GENERAL ORD ERABLES Final Result [facility] [address] [place] [address] from Last 3 Months or Most Recently Relevant to Health Maintenance Insurance [place] [employer] [place] B[employer]EF[place] [facility]
--- OUTSIDE RECORDS SUMMARY | 2025-03-29 15:27 | XMS_ITS | Encounter Summary ---
Author Organization [facility] Address [address] [place] [address] Phone Care Team Providers Care Suspect Artist Supervisor Name Role Phone Lisa Riggins MD Primary Care Provider [phone] Encounter Details Date Type Department Care Team (Late st Contact Info) Description 06/11/2015 Documentation [facility] [place] [address] [place] [address] Family Medicine, Physician [facility] [address] [place], [place] [address] Social History Tobacco Use Types Packs/Day Years [...] on filedocumented in this encounter Care Teams Suspect Artist Supervisor Relationship Specialty Start Date End Date Lisa Riggins MD [address] [place] [address] DEANNA Devine [address] PCP - General 12/25/16 10/14/21 documented as of this encounter
--- OUTSIDE RECORDS SUMMARY | 2025-03-29 15:27 | XMS_ITS | Patient Health Record ---
Author Organization [facility] Address [address] [facility] [address] [place] [address] Care Team Providers Care Coding Compliance Auditor Name Role Phone RONNIE MARTINEZ M.D Primary Care Provider Neena Germain Unavailable [phone] Allergies Allergen (clinical drug ingredient) Drug/Non Drug [...] Status W/U Status Risk Notes Problem Dysmenorrhea ([id number]) Dysmenorrhea, unspecified (N94.6) Active confirmed Vital Signs Temperature 97.9 degrees Fahrenheit 01/12/2025 Blood pressure diastolic 72 mm Hg 01/12/2025 BMI Percentile 29.89 % 01/12/2025 Height 66 in 01/12/2025 Blood pressure systolic 122 mm Hg 01/12/2025 Weight 125 lbs 01/12/2025 BMI 20.17 kg/m2 01/12/2025 Encounters Encounter Location Date Provider Diagnosis [address] [address] 11/24/2024 Neena Danielle Encounter for surveillance of injectable contraceptive Z30.[address] [address] 01/12/2025 Neena Danielle Encounter for gynecological examination (general) (routine) without abnormal findings Z01.419 ; Encounter for surveillance of contraceptives, unspecified Z30.40 ; Dysmenorrhea, unspecified N94.6 and Other specified counseling Z71.[address] [address] 03/05/2025 Neena Danielle Dysmenorrhea, unspecified N94.6 Assessments [...] Provider Name:Neena murdock, 05/09/2025 10:20:00 AM, [address], [address], [place], [address], Provider Name:Neena umrdock, 01/18/2026 01:40:00 PM, [address], [place], [address], Insurance Providers Payer Name Payer Address Payer Phone Subscriber Number Group Number Insured Name Patient Relationship to Insured Coverage Start Date Coverage End Date [employer]UE [employer]EFIT [facility] [address] [address] [place] [address] [id number] BATSHEVA MARTÍNEZ Child - Insured has Financial Responsibility Medications Administered Medication Instructions Date of Administration Dosage Notes DEPO PROVERA 11/24/2024 150 mg Medical (General) History Medical History History ICD Code Cardiac murmur, unspecified R01.1 Dysmenorrhea, unspecified N94.6
--- OUTSIDE RECORDS SUMMARY | 2025-03-29 15:27 | XMS_ITS | Encounter Summary ---
Author Organization [facility] Address [address] [place] [address] Phone Care Team Providers Care Supply Teacher Name Role Phone Lisa Riggins MD Primary Care Provider [phone] Encounter Details Date Type Department Care Team (Late st Contact Info) Description 10/19/2014 Documentation [facility] [place] [address] [place] [address] Family Medicine, Physician [address] [place], [place] [address] Social History Tobacco Use Types Packs/Day Years [...] on filedocumented in this encounter Care Teams Supply Teacher Relationship Specialty Start Date End Date Lisa Riggins MD [address] [place] [address] DEANNA Devine [address] PCP - General 12/25/16 10/14/21 documented as of this encounter
--- OUTSIDE RECORDS SUMMARY | 2025-03-29 15:27 | XMS_ITS | Encounter Summary ---
Author Organization [facility] Address [address] [place] [address] Care Team Providers Care Book Author Name Role Phone Lisa Riggins MD Primary Care Provider [phone] Reason for Visit * Reason Comments Medication Refill Encounter Details Date Type Department Care Team (Late st Contact Info) Description 10/19/2021 Refill [facility], Department of Nephrology [address] [place] [phone] Amor Marti MD [address] [facility] [place] [address] Calculus of kidney; Vitamin D deficiency Social [...] deficiency documented in this encounter Care Teams Book Author Relationship Specialty Start Date End Date Lisa Riggins MD [address] [place] [address] [address] [place] QUEZADA [phone] PCP - General General Pediatrics 02/24/21 documented as of this encounter
--- OUTSIDE RECORDS SUMMARY | 2025-03-29 15:27 | XMS_ITS | Encounter Summary ---
Author Organization [facility] Address [address] [place] [address] Phone Care Team Providers Care Fishing Manager Name Role Phone Lisa Riggins MD Primary Care Provider [phone] Encounter Details Date Type Department Care Team (Late st Contact Info) Description 11/10/2016 [place] [facility] [place] [address] [place] [address] Family [facility], [facility] [place] [address] Social History Tobacco Use Types Packs/Day Years [...] on filedocumented in this encounter Care Teams Fishing Manager Relationship Specialty Start Date End Date Lisa Riggins MD [address] [place] [address] DEANNA Devine [address] PCP - General 12/25/16 10/14/21 documented as of this encounter
--- OUTSIDE RECORDS SUMMARY | 2025-03-29 15:27 | XMS_ITS | Encounter Summary ---
Author Organization [facility] Address [address] [place] [address] Phone Care Team Providers Care Forklift Mechanic Name Role Phone Lisa Riggins MD Primary Care Provider [phone] Encounter Details Date Type Department Care Team (Late st Contact Info) Description 11/10/[address] [facility] [place] Family Medicine [address] [place] [address] Family Medicine, Physician Count includes the [facility] [place] [address] Social History Tobacco Use Types Packs/Day Years [...] on filedocumented in this encounter Care Teams Forklift Mechanic Relationship Specialty Start Date End Date Lisa Riggins MD [address] [place] [address] DEANNA Devine [address] PCP - General 12/25/16 10/14/21 documented as of this encounter
--- OUTSIDE RECORDS SUMMARY | 2025-03-29 15:27 | XMS_ITS | Clinical Summary ---
Author Organization [facility] Address [address] [place] [address] Care Team Providers Care Foam Charger Name Role Phone Lisa Riggins MD Primary Care Provider [phone] Source Comments Please note that some or [...] so, obtain the minor's consent prior to disclosure.[facility] Allergies Active Allergy Reactions Criticality Noted [...] (IRON ORAL) Take by mouth Active vitamin V23-lozoa acid 0.5-1 mg Tablet 0 Refills, Maintenance, [...] be different from the original. Preferred Lab: [facility] [address] [place] [address] p: [phone] f: [phone] Problem Noted Date Diagnosed Date Right nephrolithiasis 10/15/2021 Left nephrolithiasis 04/16/2021 Family History Medical History Relation Name Comments Hypertension Mother Relation Name Status Comments Mother Social History Tobacco Use Types Packs/Day Years Used Date Smoking Tobacco: Never Smokeless Tobacco: Never Tobacco Cessation:Counseling Given: Not Answered Other Needs Answer Date Recorded Anything else about your child you'd like help w [facility]? Not on file 01/29/2023 Share good news [...] patient's age to complete this topic Insurance [employer] Care Teams Foam Charger Relationship Specialty Start Date End Date Lisa Riggins MD [address] [place] [address] ANAHI 1 DEANNA QUEZADA [phone] PCP - General General Pediatrics 02/24/21
--- OUTSIDE RECORDS SUMMARY | 2025-03-29 15:27 | XMS_ITS | Encounter Summary ---
Author Organization [facility] Address [address] [place] [address] Phone Care Team Providers Care Product Applications Scientist Name Role Phone Lisa Riggins MD Primary Care Provider [phone] Encounter Details Date Type Department Care Team (Late st Contact Info) Description 10/25/2015 [place]ation [facility] [place] [address] [place] [address] Family Medicine, Physician [address] [place], [place] [address] Social History Tobacco Use Types Packs/Day Years [...] on filedocumented in this encounter Care Teams Product Applications Scientist Relationship Specialty Start Date End Date Lisa Riggins MD [address] [place] [address] DEANNA Devine [address] PCP - General 12/25/16 10/14/21 documented as of this encounter
--- OUTSIDE RECORDS SUMMARY | 2025-03-29 15:27 | XMS_ITS | Encounter Summary ---
Author Organization [facility] Address [address] [place] [address] Phone Care Team Providers Care Yarn Mercerizer Operator Helper Name Role Phone Lisa Riggins MD Primary Care Provider [phone] Encounter Details Date Type Department Care Team (Late st Contact Info) Description 12/31/2016 Conversion Encounter [facility] [place] [address] [place] [address] Social History Tobacco Use Types Packs/Day Years [...] on filedocumented in this encounter Care Teams Yarn Mercerizer Operator Helper Relationship Specialty Start Date End Date Lisa Riggins MD [address] [place] [address] PCP - General 12/25/16 10/14/21 documented as of this encounter
--- OUTSIDE RECORDS SUMMARY | 2025-03-29 15:27 | XMS_ITS | Encounter Summary ---
Author Organization [facility] Address [address] [place] [address] Phone Care Team Providers Care Casino Cage Supervisor Name Role Phone Lisa Riggins MD Primary Care Provider [phone] Encounter Details Date Type Department Care Team (Late st Contact Info) Description 09/04/2015 Documentation [facility] [place] [address] [place] [address] Family Medicine, Physician [facility] [place] [address] Social History Tobacco Use Types Packs/Day Years [...] on filedocumented in this encounter Care Teams Casino Cage Supervisor Relationship Specialty Start Date End Date Lisa Riggins MD [address] [place] [address] DEANNA Devine [address] PCP - General 12/25/16 10/14/21 documented as of this encounter
--- OUTSIDE RECORDS SUMMARY | 2025-03-29 15:27 | XMS_ITS | Encounter Summary ---
Author Organization [facility] Address [address] [place] [address] Phone Care Team Providers Care Bmw Service Technician Name Role Phone Lisa Riggins MD Primary Care Provider [phone] Encounter Details Date Type Department Care Team (Late st Contact Info) Description 10/19/2014 Documentation [facility] [place] [address] [place] [address] Family Medicine, Physician [address] [place], [place] [address] Social History Tobacco Use Types Packs/Day Years [...] on filedocumented in this encounter Care Teams Bmw Service Technician Relationship Specialty Start Date End Date Lisa Riggins MD [address] [place] [address] DEANNA Devine [address] PCP - General 12/25/16 10/14/21 documented as of this encounter
--- OUTSIDE RECORDS SUMMARY | 2025-03-29 15:27 | XMS_ITS | Encounter Summary ---
Author Organization [facility] Address [address] [place] [address] Phone Care Team Providers Care Varnish Blender Name Role Phone Lisa Riggins MD Primary Care Provider [phone] Encounter Details Date Type Department Care Team (Late st Contact Info) Description 02/08/2014 Documentation [facility] [place] [address] [place] [address] Family Medicine, Physician [facility] [place] [place], [place] [address] Social History Tobacco Use Types Packs/Day Years [...] on filedocumented in this encounter Care Teams Varnish Blender Relationship Specialty Start Date End Date Lisa Riggins MD [address] [place] [address] DEANNA Devine [address] PCP - General 12/25/16 10/14/21 documented as of this encounter
--- OUTSIDE RECORDS SUMMARY | 2025-03-29 15:27 | XMS_ITS | Encounter Summary ---
Author Organization [facility] Address [address] [place] [address] Phone Care Team Providers Care Network Coordinator Name Role Phone Lisa Riggins MD Primary Care Provider [phone] Encounter Details Date Type Department Care Team (Late st Contact Info) Description 11/10/2016 Documentation [facility] [place] [address] [place] [address] Family Medicine, Physician [facility] [place], [place] [address] Social History Tobacco Use Types Packs/Day Years [...] on filedocumented in this encounter Care Teams Network Coordinator Relationship Specialty Start Date End Date Lisa Riggins MD [address] [place] [address] DEANNA Devine [address] PCP - General 12/25/16 10/14/21 documented as of this encounter
--- OUTSIDE RECORDS SUMMARY | 2025-03-29 15:27 | XMS_ITS | Encounter Summary ---
Author Organization [facility] Address [address] [place] [address] Phone Care Team Providers Care Shuttle Van Driver Name Role Phone Lisa Riggins MD Primary Care Provider [phone] Encounter Details Date Type Department Care Team (Late st Contact Info) Description 12/03/2014 [place]ation [facility] [place] [address] [place] [address] Family Medicine, Physician [address] [place], [place] [address] Social History Tobacco Use Types Packs/Day Years [...] on filedocumented in this encounter Care Teams Shuttle Van Driver Relationship Specialty Start Date End Date Lisa Riggins MD [address] [place] [address] DEANNA Devine [address] PCP - General 12/25/16 10/14/21 documented as of this encounter
--- OUTSIDE RECORDS SUMMARY | 2025-03-29 15:27 | XMS_ITS | Encounter Summary ---
Author Organization [facility] Address [address] [place] [address] Phone Care Team Providers Care President Of The [place] Name Role Phone Lisa Riggins MD Primary Care Provider [phone] Encounter Details Date Type Department Care Team (Late st Contact Info) Description 10/04/2015 Documentation [facility] [place] [address] [place] [address] Family Medicine, Physician [facility] [place] [address] Social History Tobacco Use Types [...] on filedocumented in this encounter Care Teams President Of The [place] Relationship Specialty Start Date End Date Lisa Riggins MD [address] [place] [address] DEANNA Devine [address] PCP - General 12/25/16 10/14/21 documented as of this encounter
--- OUTSIDE RECORDS SUMMARY | 2025-03-29 15:27 | XMS_ITS | Encounter Summary ---
Author Organization [facility] Address [address] [place] [address] Phone Care Team Providers Care Public Health Sanitarian Technician Name Role Phone Lisa Riggins MD Primary Care Provider [phone] Encounter Details Date Type Department Care Team (Late st Contact Info) Description 02/08/2014 Documentation [facility] [place] [address] [place] [address] Family Medicine, Physician [facility] [address] [place], [place] [address] Social History Tobacco Use Types Packs/Day Years [...] on filedocumented in this encounter Care Teams Public Health Sanitarian Technician Relationship Specialty Start Date End Date Lisa Riggins MD [address] [place] [address] DEANNA Devine [address] PCP - General 12/25/16 10/14/21 documented as of this encounter
--- OUTSIDE RECORDS SUMMARY | 2025-03-29 15:27 | XMS_ITS | Encounter Summary ---
Author Organization [facility] Address [address] [place] [address] Phone Care Team Providers Care Pen Tester Name Role Phone Lisa Riggins MD Primary Care Provider [phone] Encounter Details Date Type Department Care Team (Late st Contact Info) Description 10/28/2015 Documentation [facility] [place] [address] [place] [address] Family Medicine, Physician [facility] [place], [place] [address] Social History Tobacco Use Types Packs/Day Years [...] on filedocumented in this encounter Care Teams Pen Tester Relationship Specialty Start Date End Date Lisa Riggins MD [address] [place] [address] DEANNA Devine [address] PCP - General 12/25/16 10/14/21 documented as of this encounter
--- OUTSIDE RECORDS SUMMARY | 2025-03-29 15:27 | XMS_ITS | Encounter Summary ---
Author Organization [facility] Address [address] [place] [address] Phone Care Team Providers Care Student Success Coach Name Role Phone Lisa Riggins MD Primary Care Provider [phone] Encounter Details Date Type Department Care Team (Late st Contact Info) Description 09/09/2015 Documentation [facility] [place] Family Medicine [address] [place] [address] Family Medicine, Physician [facility] [place], [place] [address] Social History Tobacco Use Types Packs/Day Years [...] on filedocumented in this encounter Care Teams Student Success Coach Relationship Specialty Start Date End Date Lisa Riggins MD [address] [place] [address] DEANNA Devine [address] PCP - General 12/25/16 10/14/21 documented as of this encounter
--- OUTSIDE RECORDS SUMMARY | 2025-03-29 15:27 | XMS_ITS | Encounter Summary ---
Author Organization [facility] Address [address] [place] [address] Phone Care Team Providers Care Process Manager Name Role Phone Lisa Riggins MD Primary Care Provider [phone] Encounter Details Date Type Department Care Team (Late st Contact Info) Description 07/15/2016 Documentation [facility] Family Medicine [address] [place] [address] Family Medicine, Physician [facility] [place], [place] [address] Social History Tobacco Use Types Packs/Day Years [...] on filedocumented in this encounter Care Teams Process Manager Relationship Specialty Start Date End Date Lisa Riggins MD [address] [place] [address] DEANNA Devine [address] PCP - General 12/25/16 10/14/21 documented as of this encounter
--- OUTSIDE RECORDS SUMMARY | 2025-03-29 15:28 | XMS_ITS | Encounter Summary ---
Author Organization [facility] Address [address] [place] [address] Phone Care Team Providers Care Web Site Designer Name Role Phone Lisa Riggins MD Primary Care Provider [phone] Reason for Visit * Reason Comments Med Refill Encounter Details Date Type Department Care Team (Late st Contact Info) Description 09/30/2021 Refill [facility] [place] [address] [place] [address] Lisa Riggins MD [address] [place] [address] Menses painful Social History Tobacco Use Types [...] Dysmenorrhea documented in this encounter Care Teams Web Site Designer Relationship Specialty Start Date End Date Lisa Riggins MD [address] [place] [address] DEANNA Devine [address] PCP - General 12/25/16 10/14/21 documented as of this encounter
--- OUTSIDE RECORDS SUMMARY | 2025-03-29 15:28 | XMS_ITS | Encounter Summary ---
Author Organization [facility] Address [address] [place] [address] Phone Care Team Providers Care Station Worker Name Role Phone Lisa Riggins MD Primary Care Provider [phone] Encounter Details Date Type Department Care Team (Late st Contact Info) Description 10/06/2013 Documentation [facility] [place] [address] [place] [address] Family Medicine, Physician [address] [place], [place] [address] Social History Tobacco Use Types Packs/Day Years [...] on filedocumented in this encounter Care Teams Station Worker Relationship Specialty Start Date End Date Lisa Riggins MD [address] [place] [address] DEANNA Devine [address] PCP - General 12/25/16 10/14/21 documented as of this encounter
--- OUTSIDE RECORDS SUMMARY | 2025-03-29 15:28 | XMS_ITS | Encounter Summary ---
Author Organization [facility] Address [address] [place] [address] Phone Care Team Providers Care Sliver Machine Operator Name Role Phone Lisa Riggins MD Primary Care Provider [phone] Encounter Details Date Type Department Care Team (Late st Contact Info) Description 11/18/2010 Documentation [facility] [place] [address] [place] [address] Family Medicine, Physician [address] [place] [address] Social History Tobacco Use Types [...] on filedocumented in this encounter Care Teams Sliver Machine Operator Relationship Specialty Start Date End Date Lisa Riggins MD [address] [place] [address] DEANNA Devine [address] PCP - General 12/25/16 10/14/21 documented as of this encounter
--- OUTSIDE RECORDS SUMMARY | 2025-03-29 15:28 | XMS_ITS | Encounter Summary ---
Author Organization [facility] Address [address] [place] [address] Phone Care Team Providers Care Briquette Machine Operator Helper Name Role Phone Lisa Riggins MD Primary Care Provider [phone] Encounter Details Date Type Department Care Team (Late st Contact Info) Description 03/22/2013 Documentation [facility] [place] [address] [place] [address] Family Medicine, Physician [address] [place], [place] [address] Social History Tobacco Use Types Packs/Day Years [...] on filedocumented in this encounter Care Teams Briquette Machine Operator Helper Relationship Specialty Start Date End Date Lisa Riggisn MD [address] [place] [address] DEANNA Devine [address] PCP - General 12/25/16 10/14/21 documented as of this encounter
--- OUTSIDE RECORDS SUMMARY | 2025-03-29 15:28 | XMS_ITS | Encounter Summary ---
Author Organization [facility] Address [address] [place] [address] Phone Care Team Providers Care Lift Builder Whole Name Role Phone Lisa Riggins MD Primary Care Provider [phone] Encounter Details Date Type Department Care Team (Late st Contact Info) Description 03/03/2012 Documentation [facility] [place] [address] [place] [address] Family Medicine, Physician [address] [place], [place] [address] Social History Tobacco Use Types Packs/Day Years [...] on filedocumented in this encounter Care Teams Lift Builder Whole Relationship Specialty Start Date End Date Lisa Riggins MD [address] [place] [address] DEANNA Devine [address] PCP - General 12/25/16 10/14/21 documented as of this encounter
--- OUTSIDE RECORDS SUMMARY | 2025-03-29 15:28 | XMS_ITS | Encounter Summary ---
Author Organization [facility] Address [address] [place] [address] Phone Care Team Providers Care Seal Mixing Operator Name Role Phone Lisa Riggins MD Primary Care Provider [phone] Encounter Details Date Type Department Care Team (Late st Contact Info) Description 11/12/2011 Documentation [facility] [place] [address] [place] [address] Family Medicine, Physician [address] [place], [place] [address] Social History Tobacco Use Types Packs/Day Years [...] on filedocumented in this encounter Care Teams Seal Mixing Operator Relationship Specialty Start Date End Date Lisa Riggins MD [address] [place] [address] DEANNA Devine [address] PCP - General 12/25/16 10/14/21 documented as of this encounter
--- OUTSIDE RECORDS SUMMARY | 2025-03-29 15:28 | XMS_ITS | Encounter Summary ---
Author Organization [facility] Address [address] [place] [address] Phone Care Team Providers Care Computer Technology Teacher Name Role Phone Lisa Riggins MD Primary Care Provider [phone] Encounter Details Date Type Department Care Team (Late st Contact Info) Description 11/18/2010 Documentation [facility] [place] [address] [place] [address] Family Medicine, Physician [address] [place] [address] Social History Tobacco Use Types [...] on filedocumented in this encounter Care Teams Computer Technology Teacher Relationship Specialty Start Date End Date Lisa Riggins MD [address] [place] [address] DEANNA Devine [address] PCP - General 12/25/16 10/14/21 documented as of this encounter
--- OUTSIDE RECORDS SUMMARY | 2025-03-29 15:28 | XMS_ITS | Encounter Summary ---
Author Organization [facility] Address [address] [place] [address] Phone Care Team Providers Care Evaluation Advisor Name Role Phone Lisa Riggins MD Primary Care Provider [phone] Encounter Details Date Type Department Care Team (Late st Contact Info) Description 06/03/2012 Documentation [facility] [place] [address] [place] [address] Family Medicine, Physician [address] [place], [place] [address] Social History Tobacco Use Types Packs/Day Years [...] on filedocumented in this encounter Care Teams Evaluation Advisor Relationship Specialty Start Date End Date Lisa Riggins MD [address] [place] [address] DEANNA Devine [address] PCP - General 12/25/16 10/14/21 documented as of this encounter
--- OUTSIDE RECORDS SUMMARY | 2025-03-29 15:28 | XMS_ITS | Encounter Summary ---
Author Organization [facility] Address [address] [place] [address] Phone Care Team Providers Care Automotive Vehicle Inspector Name Role Phone Lisa Riggins MD Primary Care Provider [phone] Encounter Details Date Type Department Care Team (Late st Contact Info) Description 10/11/2013 Documentation [facility] [place] [address] [place] [address] Family Medicine, Physician [address] [place], [place] [address] Social History Tobacco Use Types Packs/Day Years [...] filedocumented in this encounter Care Teams Automotive Vehicle Inspector Relationship Specialty Start Date End Date Lisa Riggins MD [address] [place] [address] DEANNA Devine [address] PCP - General 12/25/16 10/14/21 documented as of this encounter
--- OUTSIDE RECORDS SUMMARY | 2025-03-29 15:28 | XMS_ITS | Encounter Summary ---
Author Organization [facility] Address [address] [place] [address] Phone Care Team Providers Care Lining Caser Name Role Phone Lisa Riggins MD Primary Care Provider [phone] Encounter Details Date Type Department Care Team (Late st Contact Info) Description 03/18/2011 Documentation [facility] [place] [address] [place] [address] Family Medicine, Physician [address] [place], [place] [address] Social History Tobacco Use Types Packs/Day Years [...] on filedocumented in this encounter Care Teams Lining Caser Relationship Specialty Start Date End Date Lisa Riggins MD [address] [place] [address] DEANNA Devine [address] PCP - General 12/25/16 10/14/21 documented as of this encounter
--- OUTSIDE RECORDS SUMMARY | 2025-03-29 15:28 | XMS_ITS | Encounter Summary ---
Author Organization [facility] Address [address] [place] [address] Phone Care Team Providers Care Engineering Specialist Technician Name Role Phone Lisa Riggins MD Primary Care Provider [phone] Encounter Details Date Type Department Care Team (Late st Contact Info) Description 11/09/2011 Documentation [facility] [place] [address] [place] [address] Family Medicine, Physician [address] [place], [place] [address] Social History Tobacco Use Types Packs/Day Years [...] on filedocumented in this encounter Care Teams Engineering Specialist Technician Relationship Specialty Start Date End Date Lisa Riggins MD [address] [place] [address] DEANNA Devine [address] PCP - General 12/25/16 10/14/21 documented as of this encounter
== END 2025-03-29 13:14 | disposition home or self-care (01) ==
LOC: HO.HMCC 12:16
PROVIDERS: PCP Pediatrics Adolescent Medicine; Visit Provider Nurse Practitioner Family
DX: Z00.00 Encounter for general adult medical examination without abnormal findings (principal)

== ENCOUNTER → 2025-03-29 12:15 | Outpatient (BNVA) | payer OTHER, SELFPAY | PROVIDERS: PCP Pediatrics Adolescent Medicine; Visit Provider Nurse Practitioner Family | DX: Z00.00 Encounter for general adult medical examination without abnormal findings (principal) | CPT/HCPCS: 96127 ==

== ENCOUNTER 2025-04-06 09:38 | Outpatient (REF) | payer OTHER, SELFPAY ==
--- OUTSIDE RECORDS SUMMARY | 2025-04-06 10:17 | XMS_ITS | Encounter Summary ---
Author Organization [facility] Address [address] [place] [address] Phone Care Team Providers Care Intermediate Manager Name Role Phone Lisa Riggins MD Primary Care Provider [phone] Encounter Details Date Type Department Care Team (Late st Contact Info) Description 09/09/2015 [place]ation [facility] [place] [address] [place] [address] Family Medicine, Physician [facility] [place], [place] [address] Social History Tobacco Use Types Packs/Day Years [...] on filedocumented in this encounter Care Teams Intermediate Manager Relationship Specialty Start Date End Date Lisa Riggins MD [address] [place] [address] DEANNA Devine [address] PCP - General 12/25/16 10/14/21 documented as of this encounter
--- OUTSIDE RECORDS SUMMARY | 2025-04-06 10:17 | XMS_ITS | Encounter Summary ---
Author Organization [facility] Address [address] [place] [address] Phone Care Team Providers Care Plaster Model And Mold Maker Name Role Phone Lisa Riggins MD Primary Care Provider [phone] [phone] Encounter Details Date Type Department Care Team (Late st Contact Info) Description 02/08/2014 Documentation [facility] [place] [address] [place] [address] Family Medicine, Physician [facility] [place], [place] [address] Social History Tobacco Use Types Packs/Day Years [...] on filedocumented in this encounter Care Teams Plaster Model And Mold Maker Relationship Specialty Start Date End Date Lisa Riggins MD [address] [place] [address] DEANNA Devine [address] PCP - General 12/25/16 10/14/21 documented as of this encounter
--- OUTSIDE RECORDS SUMMARY | 2025-04-06 10:17 | XMS_ITS | Encounter Summary ---
Author Organization [facility] Address [address] [place] [address] Care Team Providers Care Electrophysiologist Name Role Phone Lisa Riggins MD Primary Care Provider [phone] Reason for Visit * Reason Comments Medication Refill Encounter Details Date Type Department Care Team (Late st Contact Info) Description 10/19/2021 Refill [facility], Department of Nephrology [address] [place] [phone] Amor Marti MD [address] [facility] [place] [address] Calculus of kidney; Vitamin D deficiency Social [...] deficiency documented in this encounter Care Teams Electrophysiologist Relationship Specialty Start Date End Date Lisa Riggins MD [address] [place] [address] [address] DEANNA QUEZADA [phone] PCP - General General Pediatrics 02/24/21 documented as of this encounter
--- OUTSIDE RECORDS SUMMARY | 2025-04-06 10:17 | XMS_ITS | Encounter Summary ---
Author Organization [facility] Address [address] [place] [address] Phone Care Team Providers Care Spinner Hand Name Role Phone Lisa Riggins MD Primary Care Provider [phone] Encounter Details Date Type Department Care Team (Late st Contact Info) Description 11/18/2010 Documentation [facility] [place] Family Medicine [address] [place] [address] Family Medicine, Physician [address] [place] [address] Social History Tobacco Use Types [...] on filedocumented in this encounter Care Teams Spinner Hand Relationship Specialty Start Date End Date Lisa Riggins MD [address] [place] [address] DEANNA Devine [address] PCP - General 12/25/16 10/14/21 documented as of this encounter
--- OUTSIDE RECORDS SUMMARY | 2025-04-06 10:17 | XMS_ITS | Encounter Summary ---
Author Organization [facility] Address [address] [place] [address] Phone Care Team Providers Care Testing Manager Name Role Phone Lisa Riggins MD Primary Care Provider [phone] Encounter Details Date Type Department Care Team (Late st Contact Info) Description 11/18/2010 Documentation [facility] [place] [address] [place] [address] Family Medicine, Physician [address] [place] [address] Social History Tobacco Use Types [...] on filedocumented in this encounter Care Teams Testing Manager Relationship Specialty Start Date End Date Lisa Riggins MD [address] [place] [address] DEANNA Devine [address] PCP - General 12/25/16 10/14/21 documented as of this encounter
--- OUTSIDE RECORDS SUMMARY | 2025-04-06 10:17 | XMS_ITS | Encounter Summary ---
Author Organization [facility] Address [address] [place] [address] Phone Care Team Providers Care Supervisor Dumping Name Role Phone Lisa Riggins MD Primary Care Provider [phone] Encounter Details Date Type Department Care Team (Late st Contact Info) Description 10/19/2014 Documentation [facility] [place] Medicine [address] [place] [address] Family Medicine, Physician [address] [place], [place] [address]25[address] Social History Tobacco Use Types Packs/Day Years [...] filedocumented in this encounter Care Teams Supervisor Dumping Relationship Specialty Start Date End Date Lisa Riggins MD [address] [place] [address] DEANNA Devine [address] PCP - General 12/25/16 10/14/21 documented as of this encounter
--- OUTSIDE RECORDS SUMMARY | 2025-04-06 10:17 | XMS_ITS | Clinical Summary ---
Author Organization [facility] Address [address] [place] [address] Phone Care Team Providers Care Apprentice Embalmer Name Role Phone Unavailable Primary Care Provider [...] muscle every 3 (three) months. 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 Has had a few [employer] studies done (24 hr urine). Has f/u appt scheduled. Assessment & Plan (01/29/2022 2:00 PM EDT): Follows with silk screen printing racker [place] [facility] [place] has new doc there. Has had [...] on wait list for neuropsych eval at [facility]. For over a year. Has a [...] autism - will wait for OT and [facility] to weigh in. Dysmenorrhea, unspecified 12/13/2019 Overview (01/29/2022): Very painful and heavy menses every other month. On DepoProvera since 04/2021, rx by PROVIDER ENROLLMENT SPECIALIST at [facility]. Doing very well. Assessment & Plan (09/25/2024 2:43 PM EDT): On DepoProvera since 04/2021, rx by PROVIDER ENROLLMENT SPECIALIST. Doing very well. Gets a little bleeding just when due for next shot, no significant cramping. Assessment & Plan (09/27/2023 11:51 AM EDT): On DepoProvera since 04/2021, rx by PROVIDER ENROLLMENT SPECIALIST. Doing very well. Gets a little bleeding just when due for next shot, no significant cramping. Assessment & Plan (01/29/2022 1:59 PM EDT): On DepoProvera since 04/2021, rx by PROVIDER ENROLLMENT SPECIALIST at [facility]. Doing very well. Gets a little [...] back, clothing textures, foods. Had eval at [facility] Waiting on neuropsych testing 01/29/2022 Main concern is possible autism spectrum - on wait list for neuropsych eval at [facility]. For over a year. Has a [...] not getting OT, awaiting neuropsych eval at [facility] - on wait list x > [...] Handouts given and discussed Recommend restarting differen Immunizations Immunization Administration Dates Next Due COVID-19 [...] Grandmother Arthritis Maternal Grandmother Cancer Mother Connie Genetelli Hyperlipidemia Mother Connie Genetelli Hypertension Mother Connie Genetelli Hypothyroidism Mother Connie Genetelli Migraines Mother Connie Genetelli Obesity Mother Connie Genetelli Hypertension Paternal Grandfather Macular degeneration Paternal Grandfather Arthritis Paternal Grandmother Heart disease Paternal Grandmother Macular degeneration Paternal Grandmother Relation Name Status Comments Father Batsheva Lara Alive Father: Alive and well Maternal Grandfather Materna l grandfather: Hyperlipidemia, *CVA/Stroke, Heart disease, Arthritis Maternal Grandmother Materna l grandmother: Arthritis, Rheumatic fever Mother Connie Genetelli Alive Mother: Aliv e and well Other [...] Date Last Done Comments COVID-19 Vaccine (6 - 2024-2 6 season) 2025 09/27/2023, 01/12/2023, 09/01/2021, [...] Additional history exists Procedures * Due to [facility] law, this organization might not be sharing sensitive test results. Procedure Name Priority Date/Time Associated Diagnosis Comments CHLAMYDIA AND GONORRHEA, AMPLIFIED Routine 09/25/2024 2:29 PM EDT Special screening examination for chlamydial disease from Last 3 Months or Most Recently Relevant to Health Maintenance Results * Due to [place] [employer] law, this organization might not be sharing sensitive test results. * Chlamydia and Gonorrhoea, Amplified (09/25/2024 2:29 PM EDT) C trach JASWINDER Negative Negative [facility] N gonorrhoeae JASWINDER Negative Negative [facility] Urine (Urine) 09/25/2024 2:2 9 PM EDT 09/25/2024 Comment:Urine Narrative [facility] - 09/27/2024 6:05 PM EDT Performed at: 01 - [address], [address], [place], [place] [id number] Cigar Bander Hand: Dean Wright MD, Phone: [phone] us Cadence Swan MD LAB MICROBIOLOGY - GENERAL ORD ERABLES Final Result [facility] [address] [place] [address] from Last 3 Months or Most Recently Relevant to Health Maintenance Insurance [address] [facility] [place] [address] [employer] [place] [employer] [facility]
--- OUTSIDE RECORDS SUMMARY | 2025-04-06 10:17 | XMS_ITS | Encounter Summary ---
Author Organization [facility] Address [address] [place] [address] Phone Care Team Providers Care Carpenter Labor Supervisor Name Role Phone Lisa Riggins MD Primary Care Provider [phone] Encounter Details Date Type Department Care Team (Late st Contact Info) Description 11/10/2016 Documentation [facility] [place] [address] [place] [address] Family Medicine, Physician [facility] [place], [place] [address] Social History Tobacco Use Types Packs/Day Years [...] on filedocumented in this encounter Care Teams Carpenter Labor Supervisor Relationship Specialty Start Date End Date Lisa Riggins MD [address] [place] [address] DEANNA Devine [address] PCP - General 12/25/16 10/14/21 documented as of this encounter
--- OUTSIDE RECORDS SUMMARY | 2025-04-06 10:17 | XMS_ITS | Encounter Summary ---
Author Organization [facility] Address [address] [place] [address] Phone Care Team Providers Care Grain Unloader Machine Name Role Phone Lisa Riggins MD Primary Care Provider [phone] Encounter Details Date Type Department Care Team (Late st Contact Info) Description 09/04/2015 Documentation [facility] [place] Medicine [address] [place] [address] Family Medicine, Physician [facility] [place], [place] [address] Social History Tobacco Use Types Packs/Day Years [...] on filedocumented in this encounter Care Teams Grain Unloader Machine Relationship Specialty Start Date End Date Lisa Riggins MD [address] [place] [address] DEANNA Devine [address] PCP - General 12/25/16 10/14/21 documented as of this encounter
--- OUTSIDE RECORDS SUMMARY | 2025-04-06 10:17 | XMS_ITS | Encounter Summary ---
Author Organization [facility] Address [address] [place] [address] Phone Care Team Providers Care Materials And Processes Manager Name Role Phone Lisa Riggins MD Primary Care Provider [phone] Encounter Details Date Type Department Care Team (Late st Contact Info) Description 10/19/2014 Documentation [facility] [place] [address] [place] [address] Family Medicine, Physician [address] [place], [place] [address]32[address] Social History Tobacco Use Types Packs/Day Years [...] on filedocumented in this encounter Care Teams Materials And Processes Manager Relationship Specialty Start Date End Date Lisa Riggins MD [address] [place] [address] DEANNA Devine [address] PCP - General 12/25/16 10/14/21 documented as of this encounter
--- OUTSIDE RECORDS SUMMARY | 2025-04-06 10:17 | XMS_ITS | Patient Health Record ---
Author Organization [facility] Address [address] [facility] [address] [place] [address] Care Team Providers Care Manager Brand Name Role Phone RONNIE MARTINEZ M.D Primary Care Provider Neena Germain Unavailable [phone] Allergies Allergen (clinical drug ingredient) Drug/Non Drug [...] Status W/U Status Risk Notes Problem Dysmenorrhea ([id number]) Dysmenorrhea, unspecified (N94.6) Active confirmed Vital Signs Temperature 97.9 degrees Fahrenheit 01/12/2025 Blood pressure diastolic 72 mm Hg 01/12/2025 BMI Percentile 29.89 % 01/12/2025 Height 66 in 01/12/2025 Blood pressure systolic 122 mm Hg 01/12/2025 Weight 125 lbs 01/12/2025 BMI 20.17 kg/m2 01/12/2025 Encounters Encounter Location Date Provider Diagnosis [address] [address] 11/24/2024 Neena Danielle Encounter for surveillance of injectable contraceptive Z30.[address] [address] 01/12/2025 Neena Danielle Encounter for gynecological examination (general) (routine) without abnormal findings Z01.419 ; Encounter for surveillance of contraceptives, unspecified Z30.40 ; Dysmenorrhea, unspecified N94.6 and Other specified counseling Z71.[address] [address] 03/05/2025 Neena Danielle Dysmenorrhea, unspecified N94.6 Assessments [...] Provider Name:Neena murdock, 05/09/2025 10:20:00 AM, [address], [place], [address], Provider Name:Neena murdock, 01/18/2026 01:40:00 PM, [address], [place], [address], Insurance Providers Payer Name Payer Address Payer Phone Subscriber Number Group Number Insured Name Patient Relationship to Insured Coverage Start Date Coverage End Date [facility] [facility] [address] [address] [place] [address] [id number] BATSHEVA MARTÍNEZ Child - Insured has Financial Responsibility Medications Administered Medication Instructions Date of Administration Dosage Notes DEPO PROVERA 11/24/2024 150 mg Medical (General) History Medical History History ICD Code Cardiac murmur, unspecified R01.1 Dysmenorrhea, unspecified N94.6
--- OUTSIDE RECORDS SUMMARY | 2025-04-06 10:17 | XMS_ITS | Encounter Summary ---
Author Organization [facility] Address [address] [place] [address] Phone Care Team Providers Care Safety And Health Manager Name Role Phone Lisa Riggins MD Primary Care Provider [phone] Encounter Details Date Type Department Care Team (Late st Contact Info) Description 06/11/2015 Documentation [place] Family Medicine [address] [place] [address] Family Medicine, Physician [facility] [address] [place], [place] [address] Social History Tobacco Use Types Packs/Day Years [...] on filedocumented in this encounter Care Teams Safety And Health Manager Relationship Specialty Start Date End Date Lisa Riggins MD [address] [place] [address] DEANNA Devine [address] PCP - General 12/25/16 10/14/21 documented as of this encounter
--- OUTSIDE RECORDS SUMMARY | 2025-04-06 10:17 | XMS_ITS | Encounter Summary ---
Author Organization [facility] Address [address] [place] [address] Phone Care Team Providers Care Superintendent Seed Mill Name Role Phone Lisa Riggins MD Primary Care Provider [phone] Encounter Details Date Type Department Care Team (Late st Contact Info) Description 10/28/2015 Documentation [facility] [place] Family Medicine [address] [place] [address] Family Medicine, Physician [facility] [place], [place] [address] Social History Tobacco Use Types Packs/Day Years [...] on filedocumented in this encounter Care Teams Superintendent Seed Mill Relationship Specialty Start Date End Date Lisa Riggins MD [address] [place] [address] DEANNA Devine [address] PCP - General 12/25/16 10/14/21 documented as of this encounter
--- OUTSIDE RECORDS SUMMARY | 2025-04-06 10:17 | XMS_ITS | Encounter Summary ---
Author Organization [facility] Address [address] [place] [address] Phone Care Team Providers Care Cafe Aide Name Role Phone Lisa Riggins MD Primary Care Provider [phone] Encounter Details Date Type Department Care Team (Late st Contact Info) Description 12/31/2016 Conversion Encounter [facility] [place] [address] [place] [address] Social History Tobacco Use Types Packs/Day Years [...] on filedocumented in this encounter Care Teams Cafe Aide Relationship Specialty Start Date End Date Lisa Riggins MD [address] [place] [address] PCP - General 12/25/16 10/14/21 documented as of this encounter
--- OUTSIDE RECORDS SUMMARY | 2025-04-06 10:17 | XMS_ITS | Encounter Summary ---
Author Organization [facility] Address [address] [place] [address] Phone Care Team Providers Care Supervisor Coremaker Name Role Phone Lisa Riggins MD Primary Care Provider [phone] Encounter Details Date Type Department Care Team (Late st Contact Info) Description 11/10/2016 Documentation [facility] [place] [address] [place] [address] Family Medicine, Physician [facility] [place], [place] [address] Social History Tobacco Use Types Packs/Day Years [...] filedocumented in this encounter Care Teams Supervisor Coremaker Relationship Specialty Start Date End Date Lisa Riggins MD [address] [place] [address] DEANNA Devine [address] PCP - General 12/25/16 10/14/21 documented as of this encounter
--- OUTSIDE RECORDS SUMMARY | 2025-04-06 10:17 | XMS_ITS | Encounter Summary ---
Author Organization [facility] Address [address] [place] [address] Phone Care Team Providers Care Tufting Creeler Name Role Phone Lisa Riggins MD Primary Care Provider [phone] Encounter Details Date Type Department Care Team (Late st Contact Info) Description 03/18/2011 Documentation [facility] [place] Family Medicine [address] [place] [address] Family Medicine, Physician [address] [place], [place] [address] Social History Tobacco Use Types Packs/Day Years [...] on filedocumented in this encounter Care Teams Tufting Creeler Relationship Specialty Start Date End Date Lisa Riggins MD [address] [place] [address] DEANNA Devine [address] PCP - General 12/25/16 10/14/21 documented as of this encounter
--- OUTSIDE RECORDS SUMMARY | 2025-04-06 10:17 | XMS_ITS | Encounter Summary ---
Author Organization [facility] Address [address] [place] [address] Phone Care Team Providers Care Product Owner Name Role Phone Lisa Riggins MD Primary Care Provider [phone] Encounter Details Date Type Department Care Team (Late st Contact Info) Description 11/10/2016 Documentation [facility] [place] [address] [place] [address] Family Medicine, Physician [facility] [place], [place] [address] Social History Tobacco Use Types Packs/Day Years [...] filedocumented in this encounter Care Teams Product Owner Relationship Specialty Start Date End Date Lisa Riggins MD [address] [place] [address] DEANNA Devine [address] PCP - General 12/25/16 10/14/21 documented as of this encounter
--- OUTSIDE RECORDS SUMMARY | 2025-04-06 10:17 | XMS_ITS | Encounter Summary ---
Author Organization [facility] Address [address] [place] [address] Phone Care Team Providers Care Byproducts Pump Operator Name Role Phone Lisa Riggins MD Primary Care Provider [phone] Encounter Details Date Type Department Care Team (Late st Contact Info) Description 02/08/2014 Documentation [facility] [place] Family Medicine [address] [place] [address] Family Medicine, Physician [facility] [address] [place], [place] [address] Social History Tobacco Use Types Packs/Day Years [...] on filedocumented in this encounter Care Teams Byproducts Pump Operator Relationship Specialty Start Date End Date Lisa Riggins MD [address] [place] [address] DEANNA Devine [address] PCP - General 12/25/16 10/14/21 documented as of this encounter
--- OUTSIDE RECORDS SUMMARY | 2025-04-06 10:17 | XMS_ITS | Encounter Summary ---
Author Organization [facility] Address [address] [place] [address] Phone Care Team Providers Care Language Arts Teacher Name Role Phone Lisa Riggins MD Primary Care Provider [phone] Encounter Details Date Type Department Care Team (Late st Contact Info) Description 10/04/2015 Documentation [facility] [place] Family [place] [address] [place] [address] Family Medicine, Physician [place] [address] Social History Tobacco Use Types [...] on filedocumented in this encounter Care Teams Language Arts Teacher Relationship Specialty Start Date End Date Lisa Riggins MD [address] [place] [address] DEANNA Devine [address] PCP - General 12/25/16 10/14/21 documented as of this encounter
--- OUTSIDE RECORDS SUMMARY | 2025-04-06 10:17 | XMS_ITS | Encounter Summary ---
Author Organization [facility] Address [address] [place] [address] Phone Care Team Providers Care Career Agent Name Role Phone Lisa Riggins MD Primary Care Provider [phone] Encounter Details Date Type Department Care Team (Late st Contact Info) Description 07/15/2016 Documentation [facility] [place] [address] [place] [address] Family Medicine, Physician [facility] [place], [place] [address] Social History Tobacco Use Types Packs/Day Years [...] on filedocumented in this encounter Care Teams Career Agent Relationship Specialty Start Date End Date Lisa Riggins MD [address] [place] [address] DEANNA Devine [address] PCP - General 12/25/16 10/14/21 documented as of this encounter
--- OUTSIDE RECORDS SUMMARY | 2025-04-06 10:17 | XMS_ITS | Encounter Summary ---
Author Organization [facility] Address [address] [place] [address] Phone Care Team Providers Care Advertising Strategist Name Role Phone Lias Riggins MD Primary Care Provider [phone] Encounter Details Date Type Department Care Team (Late st Contact Info) Description 12/03/2014 Documentation [facility] [place] [address] [place] [address] Family Medicine, Physician [address] [place], [place] [address] Social History Tobacco Use Types Packs/Day Years [...] on filedocumented in this encounter Care Teams Advertising Strategist Relationship Specialty Start Date End Date Lisa Riggins MD [address] [place] [address] DEANNA Devine [address] PCP - General 12/25/16 10/14/21 documented as of this encounter
--- OUTSIDE RECORDS SUMMARY | 2025-04-06 10:17 | XMS_ITS | Encounter Summary ---
Author Organization [facility] Address [address] [place] [address] Phone Care Team Providers Care Receptionist Telephone Operator Name Role Phone Lisa Riggins MD Primary Care Provider [phone] Encounter Details Date Type Department Care Team (Late st Contact Info) Description 10/25/2015 Documentation [facility] [place] [address] [place] [address] Family Medicine, Physician [address] [place], [place] [address] Social History Tobacco Use Types Packs/Day Years [...] on filedocumented in this encounter Care Teams Receptionist Telephone Operator Relationship Specialty Start Date End Date Lisa Riggins MD [address] [place] [address] DEANNA Devine [address] PCP - General 12/25/16 10/14/21 documented as of this encounter
--- OUTSIDE RECORDS SUMMARY | 2025-04-06 10:17 | XMS_ITS | Clinical Summary ---
Author Organization [facility] Address [address] [place] [address] Care Team Providers Care Senior Bi Developer Name Role Phone Lisa Riggins MD Primary Care Provider [phone]- [phone] Source Comments Please note that some or [...] so, obtain the minor's consent prior to disclosure.[facility] Allergies Active Allergy Reactions Criticality Noted Date [...] (IRON ORAL) Take by mouth Active vitamin Q42-ghfik acid 0.5-1 mg Tablet 0 Refills, Maintenance, [...] be different from the original. Preferred Lab: [facility] [address] [place] [address] p: [phone] f: [phone] Problem Noted Date Diagnosed Date Right nephrolithiasis 10/15/2021 Left nephrolithiasis 04/16/2021 Family History Medical History Relation Name Comments Hypertension Mother Relation Name Status Comments Mother Social History Tobacco Use Types Packs/Day Years Used Date Smoking Tobacco: Never Smokeless Tobacco: Never Tobacco Cessation:Counseling Given: Not Answered Other Needs Answer Date Recorded Anything else about your child you'd [facility]? Not on file 01/29/2023 Share good news [...] patient's age to complete this topic Insurance [employer] CROSS Care Teams Senior Bi Developer Relationship Specialty Start Date End Date Lisa Riggins MD [address] [place] [address] ANAHI 1 DEANNA QUEZADA [address] PCP - General General Pediatrics 02/24/21
--- OUTSIDE RECORDS SUMMARY | 2025-04-06 10:18 | XMS_ITS | Encounter Summary ---
Author Organization [facility] Address [address] [place] [address] Phone Care Team Providers Care Die Engraver Name Role Phone Lisa Riggins MD Primary Care Provider + [phone] Reason for Visit * Reason Comments Med Refill Encounter Details Date Type Department Care Team (Late st Contact Info) Description 09/30/2021 Refill [facility] [place] [address] [place] [address] Lisa Riggins MD [address] [place] [address] Menses painful Social History Tobacco Use Types [...] Dysmenorrhea documented in this encounter Care Teams Die Engraver Relationship Specialty Start Date End Date Lisa Riggins MD [address] [place] [address] DEANNA Devine [address] PCP - General 12/25/16 10/14/21 documented as of this encounter
--- OUTSIDE RECORDS SUMMARY | 2025-04-06 10:18 | XMS_ITS | Encounter Summary ---
Author Organization [facility] Address [address] [place] [address] Phone Care Team Providers Care Die Finisher Name Role Phone Lisa Riggins MD Primary Care Provider +1 [phone] Encounter Details Date Type Department Care Team (Late st Contact Info) Description 10/06/2013 Documentation [facility] [place] Family Medicine [address] [place] [address] Family Medicine, Physician [address] [place], [place] [address] Social History Tobacco Use Types Packs/Day Years [...] on filedocumented in this encounter Care Teams Die Finisher Relationship Specialty Start Date End Date Lisa Riggins MD [address] [place] [address] DEANNA Devine [address] PCP - General 12/25/16 10/14/21 documented as of this encounter
--- OUTSIDE RECORDS SUMMARY | 2025-04-06 10:18 | XMS_ITS | Encounter Summary ---
Author Organization [facility] Address [address] [place] [address] Phone Care Team Providers Care Undercutter Name Role Phone Lisa Riggins MD Primary Care Provider +1 [phone] Encounter Details Date Type Department Care Team (Late st Contact Info) Description 11/09/2011 Documentation [facility] [place] Family Medicine [address] [place] [address] Family Medicine, Physician [address] [place], [place] [address] Social History Tobacco Use Types Packs/Day Years [...] on filedocumented in this encounter Care Teams Undercutter Relationship Specialty Start Date End Date Lisa Riggins MD [address] [place] [address] DEANNA Devine [address] PCP - General 12/25/16 10/14/21 documented as of this encounter
--- OUTSIDE RECORDS SUMMARY | 2025-04-06 10:18 | XMS_ITS | Encounter Summary ---
Author Organization [facility] Address [address] [place] [address] Phone Care Team Providers Care Counter Waitress/Waiter Name Role Phone Lisa Riggins MD Primary Care Provider +1 [phone] Encounter Details Date Type Department Care Team (Late st Contact Info) Description 06/03/2012 Documentation [facility] [facility] [place] [address] [place] [address] Family Medicine, Physician [address] [place], [place] [address] Social History Tobacco Use Types Packs/Day Years [...] on filedocumented in this encounter Care Teams Counter Waitress/Waiter Relationship Specialty Start Date End Date Lisa Riggins MD [address] [place] [address] DEANNA Devine [address] PCP - General 12/25/16 10/14/21 documented as of this encounter
--- OUTSIDE RECORDS SUMMARY | 2025-04-06 10:18 | XMS_ITS | Encounter Summary ---
Author Organization [facility] Address [address] [place] [address] Phone Care Team Providers Care Air Traffic Instructor Name Role Phone Lisa Riggins MD Primary Care Provider +1 [phone] Encounter Details Date Type Department Care Team (Late st Contact Info) Description 03/03/2012 Documentation [facility] [place] Family Medicine [address] [place] [address] Family Medicine, Physician [address] [place], [place] [address] Social History Tobacco Use Types Packs/Day Years [...] filedocumented in this encounter Care Teams Air Traffic Instructor Relationship Specialty Start Date End Date Lisa Riggins MD [address] [place] [address] DEANNA Devine [address] PCP - General 12/25/16 10/14/21 documented as of this encounter
--- OUTSIDE RECORDS SUMMARY | 2025-04-06 10:18 | XMS_ITS | Encounter Summary ---
Author Organization [facility] Address [address] [place] [address] Phone Care Team Providers Care Community Worker Name Role Phone Lisa Riggins MD Primary Care Provider +[phone] Encounter Details Date Type Department Care Team (Late st Contact Info) Description 03/22/2013 Documentation [facility] [place] Family Medicine [address] [place] [address] Family Medicine, Physician [address] [place], [place] [address] Social History Tobacco Use Types Packs/Day Years [...] on filedocumented in this encounter Care Teams Community Worker Relationship Specialty Start Date End Date Lisa Riggins MD [address] [place] [address] DEANNA Devine [address] PCP - General 12/25/16 10/14/21 documented as of this encounter
--- OUTSIDE RECORDS SUMMARY | 2025-04-06 10:18 | XMS_ITS | Encounter Summary ---
Author Organization [facility] Address [address] [place] [address] Phone Care Team Providers Care Elementary School Registrar Name Role Phone Lisa Riggins MD Primary Care Provider +[phone] Encounter Details Date Type Department Care Team (Late st Contact Info) Description 10/11/2013 Documentation [facility] [place] [address] [place] [address] Family Medicine, Physician [address] [place], [place] [address] Social History Tobacco Use Types Packs/Day Years [...] on filedocumented in this encounter Care Teams Elementary School Registrar Relationship Specialty Start Date End Date Lisa Riggins MD [address] [place] [address] DEANNA Devine [address] PCP - General 12/25/16 10/14/21 documented as of this encounter
--- OUTSIDE RECORDS SUMMARY | 2025-04-06 10:18 | XMS_ITS | Encounter Summary ---
Author Organization [facility] Address [address] [place] [address] Phone Care Team Providers Care Field Services Manager Name Role Phone Lisa Riggins MD Primary Care Provider [phone] Encounter Details Date Type Department Care Team (Late st Contact Info) Description 11/12/2011 Documentation [facility] [place] Family Medicine [address] [place] [address] Family Medicine, Physician [address] [place], [place] [address] Social History Tobacco Use Types Packs/Day Years [...] on filedocumented in this encounter Care Teams Field Services Manager Relationship Specialty Start Date End Date Lisa Riggins MD [address] [place] [address] DEANNA Devine [address] PCP - General 12/25/16 10/14/21 documented as of this encounter
[2025-04-06 13:16] LABS: Appearance Urine Clear; Glucose Urine UA Negative (Negative); PH 7.0 (5.0-9.0); Specific Gravity - Urine 1.015 (1.005-1.025); UMIC TRIGGER UACC YES
[2025-04-06 13:24] LABS: UACC Culture Trigger YES
[2025-04-06 14:03] LABS: MANUAL DIFF FLAG NO
[2025-04-06 14:15] LABS: Hematocrit 40.0 % (37.0-47.0); Hemoglobin 13.2 g/dl (12.0-16.0); Imm Gran Abs Auto 0.02 X10*3/uL (0.00-0.03); Imm Gran Pct Auto 0.3 % (0.0-0.4); Lymphocytes Absolute Auto 2.6 X10*3/uL (1.2-4.9); Mean Corpuscular HGB Conc 33.0 g/dl (31.0-35.0); Mean Corpuscular Hemoglobin 30.2 pg (27.0-33.0); Mean Corpuscular Volume 91.5 fL (80.0-98.0); NRBC Abs Auto 0.000 X10*3/uL (0.0-0.012); NRBC Pct Auto 0.0 /100WBC (0.0-0.2); Platelet Count 268 X10*3/uL (160-400); Red Blood Count 4.37 X10*6/uL (4.20-5.50); White Blood Count 6.3 X10*3/uL (4.8-10.8)
[2025-04-06 19:19] LABS: Alanine Aminotransferase 14 U/L (0-31); Albumin Level 5.0 g/dL (3.5-5.0); Alkaline Phosphatase 59 U/L (39-117); Anion Gap 14 (12-20); Aspartate Amino Transferase 27 U/L (5-31); Blood Urea Nitrogen 10 mg/dL (9-16); Calcium 9.5 mg/dL (8.4-10.2); Carbon Dioxide 22 mmol/L (22-29); Chloride 108 mmol/L (96-108); Cholesterol 165 mg/dL (<200); Estimated Glomerular Filt Rate > 60; HDL Cholesterol 45 mg/dL (>40); Potassium 4.2 mmol/L (3.3-5.1); Sodium 140 mmol/L (135-145); Total Protein 8.3 g/dL (6.5-8.0); Triglycerides 76 mg/dL (<150)
== END 2025-04-06 09:39 | disposition home or self-care (01) ==
LOC: HO.HMGCLDS 09:38
PROVIDERS: PCP Nurse Practitioner Family; Visit Provider Nurse Practitioner Family
DX: Z00.00 Encounter for general adult medical examination without abnormal findings (principal); Z13.6 Encounter for screening for cardiovascular disorders; Z13.29 Encounter for screening for other suspected endocrine disorder
CPT/HCPCS: 36415; 80053; 80061; 81001; 81003; 84443; 85025; 87086

== ENCOUNTER 2025-05-07 15:10 | Outpatient (REF) | payer OTHER, SELFPAY ==
--- OUTSIDE RECORDS SUMMARY | 2025-05-04 08:00 | XMS_ITS ---
Author Organization [facility] Address [address] [facility] [address] [place] [address] Care Team Providers Care Water Resources Technical Officer Name Role Phone RONNIE MARTINEZ M.D Primary Care Provider Neena Germain Unavailable [phone] REASON FOR VISIT ULTRA - TRANS ABDOMINAL ONLY Encounters Encounter Location Date Provider Diagnosis [facility] [employer] [address] [address] 05/04/2025 Neena Danielle Plan Of Treatment Next Appt Details Provider Name:Neena Grey Ermasirena nilayionlyndon, 05/09/2025 10:20:00 AM, [address] [facility], [facility] [address], [place], [address], Provider Name:Neena murdock, 01/18/2026 01:40:00 PM, [address] [place] [address], [facility] [address], [place], [address], Progress Notes * MARYA MARTÍNEZOB:2005 (20 yo F)Acc No.[id number]:05/04/2025 PROGRESS NOTES Patient: ERNESTO IVY Appointment Provider: Lyndon Danielle M.D. :2005 A ge:20 Y S ex:Female Date:05/04/2025 Address:[address] [place] [address] [place] Pcp:RONNIE MARTINEZ M.D Subjective: * Chief Complaints: * 1 . ULTRA - TRANS ABDOMINAL ONLY. * Medical History: Objective: * Vitals: Assessment: Plan: * Treatment: * Images: Billing Information: * Visit Code: * Procedure Codes: * Electronic signature of Mateusz Danielle MD on 05/07/2025 at 06:20 PM EST Sign off status: Pending * Appointment Provider: Lyndon Danielle M.D. Date: 07/05/2024 Generated for Ramon south/Maria Elena/Leslee on: 07/08/2024 06:20 PM EST
--- NOTE | ~2025-05-07 | US_ITS ---
EXAMINATION: US PELVIS LIMITED HISTORY: dysmenorrhea COMPARISON: There are no prior studies available for comparison. TECHNIQUE: Transabdominal real-time 2D torres-scale ultrasound was performed. FINDINGS: Uterus: The uterus is normal in size, measuring 7.1 x 2.6 x 4.1 cm. Myometrium has a normal echotexture. No fibroids are identified. Endometrium: The endometrial stripe measures 3 mm in thickness. There is a subcentimeter hyperechoic area in the cervix, of uncertain significance. Right ovary: The right ovary measures 3.5 x 1.9 x 3.0 cm. The right ovary is normal in size and echotexture. Left ovary: The left ovary measures 3.4 x 2.2 x 2.1 cm. The left ovary is normal in size and echotexture. Pelvic fluid: none. US/US pelvic limited IMPRESSION: Subcentimeter hyperechoic area in the cervix, of uncertain significance. Otherwise unremarkable pelvic ultrasound. Electronically signed by: Gil Byrd MD 05/07/2025 03:55 PM [facility]
--- OUTSIDE RECORDS SUMMARY | 2025-05-07 18:20 | XMS_ITS | Encounter Summary ---
Author Organization [facility] Address [address] [place] [address] Phone Care Team Providers Care Resource Analyst Name Role Phone Lisa Riggins MD Primary Care Provider [phone] Encounter Details Date Type Department Care Team (Late st Contact Info) Description 10/28/2015 Documentation [facility] [place] Medicine [address] [place] [address] Family Medicine, Physician [facility] [place] [address] Social History Tobacco Use Types Packs/Day Years [...] on filedocumented in this encounter Care Teams Resource Analyst Relationship Specialty Start Date End Date Lisa Riggins MD [address] [place] [address] DEANNA Devine [address] PCP - General 12/25/16 10/14/21 documented as of this encounter
--- OUTSIDE RECORDS SUMMARY | 2025-05-07 18:20 | XMS_ITS | Encounter Summary ---
Author Organization [facility] Address [address] [place] [address] Phone Care Team Providers Care Contact Center Professional Name Role Phone Lisa Riggins MD Primary Care Provider [phone] Encounter Details Date Type Department Care Team (Late st Contact Info) Description 12/03/[address] [facility] [place] Family Medicine [address] [place] [address] Family Medicine, Physician [address] [place], [place] [address] Social History Tobacco Use Types Packs/Day Years [...] on filedocumented in this encounter Care Teams Contact Center Professional Relationship Specialty Start Date End Date Lisa Riggins MD [address] [place] [address] DEANNA Devine [address] PCP - General 12/25/16 10/14/21 documented as of this encounter
--- OUTSIDE RECORDS SUMMARY | 2025-05-07 18:20 | XMS_ITS | Encounter Summary ---
Author Organization [facility] Address [address] [place] [address] Phone Care Team Providers Care Hand Profiler Name Role Phone Lisa Riggins MD Primary Care Provider [phone]- [phone] Encounter Details Date Type Department Care Team (Late st Contact Info) Description 10/25/2015 Documentation [facility] [place] [address] [place] [address] Family Medicine, Physician [address] [place], [place] [address] Social History Tobacco Use Types Packs/Day Years [...] filedocumented in this encounter Care Teams Hand Profiler Relationship Specialty Start Date End Date Lisa Riggins MD [address] [place] [address] DEANNA Devine [address] PCP - General 12/25/16 10/14/21 documented as of this encounter
--- OUTSIDE RECORDS SUMMARY | 2025-05-07 18:20 | XMS_ITS | Encounter Summary ---
Author Organization [facility] Address [address] [place] [address] Phone Care Team Providers Care Sales Representative Printing Name Role Phone Lisa Riggins MD Primary Care Provider [phone] Encounter Details Date Type Department Care Team (Late st Contact Info) Description 10/19/2014 Documentation [facility] [place] [address] [place] [address] Family Medicine, Physician [address] [place], [place] [address] Social History Tobacco Use Types Packs/Day Years [...] filedocumented in this encounter Care Teams Sales Representative Printing Relationship Specialty Start Date End Date Lisa Riggins MD [address] [place] [address] DEANNA Devine [address] PCP - General 12/25/16 10/14/21 documented as of this encounter
--- OUTSIDE RECORDS SUMMARY | 2025-05-07 18:20 | XMS_ITS | Encounter Summary ---
Author Organization [facility] Address [address] [place] [address] Phone Care Team Providers Care Procedures Nurse Name Role Phone Lisa Riggins MD Primary Care Provider [phone] Encounter Details Date Type Department Care Team (Late st Contact Info) Description 06/11/2015 Documentation [facility] [place] Family Medicine [address] [place] [address] Family Medicine, Physician [facility] [address] [place], [place] [address] Social History Tobacco Use Types Packs/Day Years [...] on filedocumented in this encounter Care Teams Procedures Nurse Relationship Specialty Start Date End Date Lisa Riggins MD [address] [place] [address] DEANNA Devine [address] PCP - General 12/25/16 10/14/21 documented as of this encounter
--- OUTSIDE RECORDS SUMMARY | 2025-05-07 18:20 | XMS_ITS | Encounter Summary ---
Author Organization [facility] Address [address] [place] [address] Phone Care Team Providers Care Jboss Architect Name Role Phone Lisa Riggins MD Primary Care Provider [phone] Encounter Details Date Type Department Care Team (Late st Contact Info) Description 10/19/2014 Documentation [facility] [place] Family Medicine [address] [place] [address] Family Medicine, Physician [address] [place], [place] [address] Social History Tobacco Use Types Packs/Day Years [...] on filedocumented in this encounter Care Teams Jboss Architect Relationship Specialty Start Date End Date Lisa Riggins MD [address] [place] [address] DEANNA Devine [address] PCP - General 12/25/16 10/14/21 documented as of this encounter
--- OUTSIDE RECORDS SUMMARY | 2025-05-07 18:20 | XMS_ITS | Encounter Summary ---
Author Organization [facility] Address [address] [place] [address] Phone Care Team Providers Care House Worker Name Role Phone Lisa Riggins MD Primary Care Provider [phone] Encounter Details Date Type Department Care Team (Late st Contact Info) Description 09/09/2015 Documentation [facility] [place] Family Medicine [address] [place] [address] Family Medicine, Physician [facility] [place] [address] Social History Tobacco Use Types Packs/Day Years [...] on filedocumented in this encounter Care Teams House Worker Relationship Specialty Start Date End Date Lisa Riggins MD [address] [place] [address] DEANNA Devine [address] PCP - General 12/25/16 10/14/21 documented as of this encounter
--- OUTSIDE RECORDS SUMMARY | 2025-05-07 18:20 | XMS_ITS | Encounter Summary ---
Author Organization [facility] Address [address] [place] [address] Phone Care Team Providers Care Tempering Machine Operator Name Role Phone Lisa Riggins MD Primary Care Provider +1 [phone] Encounter Details Date Type Department Care Team (Late st Contact Info) Description 10/04/2015 Documentation [facility] [place] Family Medicine [address] [place] [address] Family Medicine, Physician [facility] [place] [address] Social History Tobacco Use Types [...] on filedocumented in this encounter Care Teams Tempering Machine Operator Relationship Specialty Start Date End Date Lisa Riggins MD [address] [place] [address] DEANNA Devine [address] PCP - General 12/25/16 10/14/21 documented as of this encounter
--- OUTSIDE RECORDS SUMMARY | 2025-05-07 18:20 | XMS_ITS | Encounter Summary ---
Author Organization [facility] Address [address] [place] [address] Phone Care Team Providers Care Engineering Technical Writer Name Role Phone Lisa Riggins MD Primary Care Provider [phone]- [phone] Encounter Details Date Type Department Care Team (Late st Contact Info) Description 09/04/2015 Documentation [facility] [place] Family Medicine [address] [place] [address] Family Medicine, Physician [facility] [place], [place] [address] Social History Tobacco Use Types Packs/Day Years [...] filedocumented in this encounter Care Teams Engineering Technical Writer Relationship Specialty Start Date End Date Lisa Riggins MD [address] [place] [address] DEANNA Devine [address] PCP - General 12/25/16 10/14/21 documented as of this encounter
--- OUTSIDE RECORDS SUMMARY | 2025-05-07 18:20 | XMS_ITS | Encounter Summary ---
Author Organization [facility] Address [address] [place] [address] Phone Care Team Providers Care Pen Maker Name Role Phone Lisa Riggins MD Primary Care Provider [phone] Encounter Details Date Type Department Care Team (Late st Contact Info) Description 12/31/2016 Conversion Encounter [facility] [place] [address] [place] [address] Social History Tobacco Use Types Packs/Day Years [...] filedocumented in this encounter Care Teams Pen Maker Relationship Specialty Start Date End Date Lisa Riggins MD [address] [place] [address] PCP - General 12/25/16 10/14/21 documented as of this encounter
--- OUTSIDE RECORDS SUMMARY | 2025-05-07 18:20 | XMS_ITS | Encounter Summary ---
Author Organization [facility] Address [address] [place] [address] Phone Care Team Providers Care Employment Services Director Name Role Phone Lisa Riggins MD Primary Care Provider +[phone] Encounter Details Date Type Department Care Team (Late st Contact Info) Description 02/08/2014 Documentation [facility] [place] Family Medicine [address] [place] [address] Family Medicine, Physician [address] [place], [place] [address] Social History Tobacco Use Types Packs/Day Years [...] on filedocumented in this encounter Care Teams Employment Services Director Relationship Specialty Start Date End Date Lisa Riggins MD [address] [place] [address] DEANNA Devine [address] PCP - General 12/25/16 10/14/21 documented as of this encounter
--- OUTSIDE RECORDS SUMMARY | 2025-05-07 18:20 | XMS_ITS | Encounter Summary ---
Author Organization [facility] Address [address] [place] [address] Phone Care Team Providers Care Bath Steward Name Role Phone Lisa Riggins MD Primary Care Provider +[phone] Encounter Details Date Type Department Care Team (Late st Contact Info) Description 02/08/[address] [facility] [place] Family Medicine [address] [place] [address] Family Medicine, Physician [address] [place], [place] [address] Social History Tobacco Use Types Packs/Day Years [...] on filedocumented in this encounter Care Teams Bath Steward Relationship Specialty Start Date End Date Lisa Riggins MD [address] [place] [address] DEANNA Devine [address] PCP - General 12/25/16 10/14/21 documented as of this encounter
--- OUTSIDE RECORDS SUMMARY | 2025-05-07 18:21 | XMS_ITS | Clinical Summary ---
Author Organization [facility] Address [address] [place] [address] Care Team Providers Care Field Support Specialist Name Role Phone Lisa Riggins MD Primary Care Provider [phone]- [phone] Source Comments Please note that some or [...] so, obtain the minor's consent prior to disclosure.[facility] Allergies Active Allergy Reactions Criticality Noted Date [...] (IRON ORAL) Take by mouth Active vitamin X85-owssp acid 0.5-1 mg Tablet 0 Refills, Maintenance, [...] different from the original. Preferred Lab: [facility] [address] [place] [address] p: [phone] f: [phone] Problem Noted Date Diagnosed Date Right nephrolithiasis 10/15/2021 Left nephrolithiasis 04/16/2021 Family History Medical History Relation Name Comments Hypertension Mother Relation Name Status Comments Mother Social History Tobacco Use Types Packs/Day Years Used Date Smoking Tobacco: Never Smokeless Tobacco: Never Tobacco Cessation:Counseling Given: Not Answered Other Needs Answer Date Recorded Anything else about your child you'd like help w [facility]? Not on file 01/29/2023 Share good [...] patient's age to complete this topic Insurance [email or web address] CR[employer] Care Teams Field Support Specialist Relationship Specialty Start Date End Date Lisa Riggins MD [address] [place] [address] ANAHI 1 DEANNA QUEZADA [phone] PCP - General General Pediatrics 02/24/21
--- OUTSIDE RECORDS SUMMARY | 2025-05-07 18:21 | XMS_ITS | Encounter Summary ---
Author Organization [facility] Address [address] [place] [address] Phone Care Team Providers Care Stripper Preliminary Name Role Phone Lisa Riggins MD Primary Care Provider [phone] Encounter Details Date Type Department Care Team (Late st Contact Info) Description 06/03/2012 Documentation [facility] [place] [address] [place] [address] Family Medicine, Physician [address] [place], [place] [address] Social History Tobacco Use Types Packs/Day Years [...] on filedocumented in this encounter Care Teams Stripper Preliminary Relationship Specialty Start Date End Date Lisa Riggins MD [address] [place] [address] DEANNA Devine [address] PCP - General 12/25/16 10/14/21 documented as of this encounter
--- OUTSIDE RECORDS SUMMARY | 2025-05-07 18:21 | XMS_ITS | Encounter Summary ---
Author Organization [facility] Address [address] [place] [address] Phone Care Team Providers Care Composer Teaching Artist Name Role Phone Lisa Riggins MD Primary Care Provider [phone] Encounter Details Date Type Department Care Team (Late st Contact Info) Description 11/10/2016 Documentation [facility] [place] [address] [place] [address] Family Medicine, Physician [facility] [place], [place] [address] Social History Tobacco Use Types Packs/Day Years [...] on filedocumented in this encounter Care Teams Composer Teaching Artist Relationship Specialty Start Date End Date Lisa Riggins MD [address] [place] [address] DEANNA Devine [address] PCP - General 12/25/16 10/14/21 documented as of this encounter
--- OUTSIDE RECORDS SUMMARY | 2025-05-07 18:21 | XMS_ITS | Encounter Summary ---
Author Organization [facility] Address [address] [place] [address] Phone Care Team Providers Care Commercial Loan Assistant Name Role Phone Lisa Riggins MD Primary Care Provider [phone] Encounter Details Date Type Department Care Team (Late st Contact Info) Description 03/18/2011 Documentation [facility] [place] [address] [place] [address] Family Medicine, Physician [address] [place], [place] [address] Social History Tobacco Use Types Packs/Day Years [...] on filedocumented in this encounter Care Teams Commercial Loan Assistant Relationship Specialty Start Date End Date Lisa Riggins MD [address] [place] [address] DEANNA Devine [address] PCP - General 12/25/16 10/14/21 documented as of this encounter
--- OUTSIDE RECORDS SUMMARY | 2025-05-07 18:21 | XMS_ITS | Encounter Summary ---
Author Organization [facility] Address [address] [place] [address] Phone Care Team Providers Care Instrument Technologist Name Role Phone Lisa Riggins MD Primary Care Provider [phone] Encounter Details Date Type Department Care Team (Late st Contact Info) Description 11/10/2016 Documentation [facility] [place] [address] [place] [address] Family Medicine, Physician [facility] [place] [address] Social History Tobacco Use Types Packs/Day Years [...] on filedocumented in this encounter Care Teams Instrument Technologist Relationship Specialty Start Date End Date Lisa Riggins MD [address] [place] [address] DEANNA Devine [address] PCP - General 12/25/16 10/14/21 documented as of this encounter
--- OUTSIDE RECORDS SUMMARY | 2025-05-07 18:21 | XMS_ITS | Encounter Summary ---
Author Organization [facility] Address [address] [place] [address] Phone Care Team Providers Care Technical Lead Name Role Phone Lisa Riggins MD Primary Care Provider [phone] Encounter Details Date Type Department Care Team (Late st Contact Info) Description 10/06/2013 Documentation [facility] [place] [address] [place] [address] Family Medicine, Physician [address] [place], [place] [address] Social History Tobacco Use Types Packs/Day Years [...] on filedocumented in this encounter Care Teams Technical Lead Relationship Specialty Start Date End Date Lisa Riggins MD [address] [place] [address] DEANNA Devine [address] PCP - General 12/25/16 10/14/21 documented as of this encounter
--- OUTSIDE RECORDS SUMMARY | 2025-05-07 18:21 | XMS_ITS | Encounter Summary ---
Author Organization [facility] Address [address] [place] [address] Phone Care Team Providers Care Proposal Manager Name Role Phone Lisa Riggins MD Primary Care Provider [phone] Encounter Details Date Type Department Care Team (Late st Contact Info) Description 11/10/2016 Documentation [facility] [place] [address] [place] [address] Family Medicine, Physician [facility] [place], [place] [address] Social History Tobacco Use Types Packs/Day Years [...] on filedocumented in this encounter Care Teams Proposal Manager Relationship Specialty Start Date End Date Lisa Riggins MD [address] [place] [address] DEANNA Devine [address] PCP - General 12/25/16 10/14/21 documented as of this encounter
--- OUTSIDE RECORDS SUMMARY | 2025-05-07 18:21 | XMS_ITS | Encounter Summary ---
Author Organization [facility] Address [address] [place] [address] Phone Care Team Providers Care Ground Crew Lines Person Name Role Phone Lisa Riggins MD Primary Care Provider [phone] Encounter Details Date Type Department Care Team (Late st Contact Info) Description 03/03/2012 Documentation [facility] [place] [address] [place] [address] Family Medicine, Physician [address] [place], [place] [address] Social History Tobacco Use Types Packs/Day Years [...] on filedocumented in this encounter Care Teams Ground Crew Lines Person Relationship Specialty Start Date End Date Lisa Riggins MD [address] [place] [address] DEANNA Devine [address] PCP - General 12/25/16 10/14/21 documented as of this encounter
--- OUTSIDE RECORDS SUMMARY | 2025-05-07 18:21 | XMS_ITS | Encounter Summary ---
Author Organization [facility] Address [address] [place] [address] Phone Care Team Providers Care Pickle Maker Name Role Phone Lisa Riggins MD Primary Care Provider [phone] Encounter Details Date Type Department Care Team (Late st Contact Info) Description 03/22/2013 Documentation [facility] [place] [address] [place] [address] Family Medicine, Physician [address] [place], [place] [address]661 Social History Tobacco Use Types Packs/Day Years [...] on filedocumented in this encounter Care Teams Pickle Maker Relationship Specialty Start Date End Date Lisa Riggins MD [address] [place] [address] DEANNA Devine [address] PCP - General 12/25/16 10/14/21 documented as of this encounter
--- OUTSIDE RECORDS SUMMARY | 2025-05-07 18:21 | XMS_ITS | Encounter Summary ---
Author Organization [facility] Address [address] [place] [address] Phone Care Team Providers Care Concrete Inspector Name Role Phone Lisa Riggins MD Primary Care Provider + [phone] Reason for Visit * Reason Comments Med Refill Encounter Details Date Type Department Care Team (Late st Contact Info) Description 09/30/2021 Refill [facility] [place] [address] [place] [address] Lisa Riggins MD [address] [place] [address] Menses painful Social History Tobacco Use Types [...] Dysmenorrhea documented in this encounter Care Teams Concrete Inspector Relationship Specialty Start Date End Date Lisa Riggins MD [address] [place] [address] DEANNA Devine [address] PCP - General 12/25/16 10/14/21 documented as of this encounter
--- OUTSIDE RECORDS SUMMARY | 2025-05-07 18:21 | XMS_ITS | Encounter Summary ---
Author Organization [facility] Address [address] [place] [address] Phone Care Team Providers Care Contour Band Saw Operator Vertical Name Role Phone Lisa Riggins MD Primary Care Provider [phone] Encounter Details Date Type Department Care Team (Late st Contact Info) Description 11/12/2011 Documentation [facility] [place] [address] [place] [address] Family Medicine, Physician [address] [place], [place] [address] Social History Tobacco Use Types Packs/Day Years [...] on filedocumented in this encounter Care Teams Contour Band Saw Operator Vertical Relationship Specialty Start Date End Date Lisa Riggins MD [address] [place] [address] DEANNA Devine [address] PCP - General 12/25/16 10/14/21 documented as of this encounter
--- OUTSIDE RECORDS SUMMARY | 2025-05-07 18:21 | XMS_ITS | Clinical Summary ---
Author Organization [facility] Address [address] [place] [address] Phone Care Team Providers Care Slot Machine Floor Person Name Role Phone Unavailable Primary Care Provider [...] muscle every 3 (three) months. 12/03/2022 Active Nahma Saline Nasal gelIndications: Epistaxis Apply nasally nightly [...] Plan (09/27/2023 11:51 AM EDT): Follows with sheet rock taper at [facility] [place]. Has had a few LithoL[employer] studies done (24 hr urine). Has f/u appt scheduled. Assessment & Plan (01/29/2022 2:00 PM EDT): Follows with sheet rock taper at [facility] [place] - has new [...] on wait list for neuropsych eval at [facility]. For over a year. Has a [...] autism - will wait for OT and [facility] to weigh in. Dysmenorrhea, unspecified 12/13/2019 Overview (01/29/2022): Very painful and heavy menses every other month. On DepoProvera since 04/2021, rx by TEMPERATURE CONTROL INSPECTOR at [facility]. Doing very well. Assessment & Plan (09/25/2024 2:43 PM EDT): On DepoProvera since 04/2021, rx by TEMPERATURE CONTROL INSPECTOR. Doing very well. Gets a little bleeding just when due for next shot, no significant cramping. Assessment & Plan (09/27/2023 11:51 AM EDT): On DepoProvera since 04/2021, rx by TEMPERATURE CONTROL INSPECTOR. Doing very well. Gets a little bleeding just when due for next shot, no significant cramping. Assessment & Plan (01/29/2022 1:59 PM EDT): On DepoProvera since 04/2021, rx by TEMPERATURE CONTROL INSPECTOR at [facility]. Doing very well. Gets a little [...] back, clothing textures, foods. Had eval at [place] [facility] Waiting on neuropsych testing 01/29/2022 Main concern is possible autism spectrum - on wait list for neuropsych eval at [facility]. For over a year. [...] not getting OT, awaiting neuropsych eval at [facility] - on wait list x [...] Additional history exists Procedures * Due to [employer] law, this organization might not be sharing sensitive test results. Procedure Name Priority Date/Time Associated Diagnosis Comments CHLAMYDIA AND GONORRHEA, AMPLIFIED Routine 09/25/2024 2:29 PM EDT Special screening examination for chlamydial disease from Last 3 Months or Most Recently Relevant to Health Maintenance Results * Due to [employer] [place] [employer] law, this organization might not be sharing sensitive test results. * Chlamydia and Gonorrhoea, Amplified (09/25/2024 2:29 PM EDT) C trach JASWINDER Negative Negative [facility] N gonorrhoeae JASWINDER Negative Negative [facility] Urine (Urine) 09/25/2024 2:2 9 PM EDT 09/25/2024 Comment:Urine Narrative [facility] - 09/27/2024 6:05 PM EDT Performed at: 01 - [address], [address], [place], [place] [id number] Brim Stitcher: Dean Wright MD, Phone: [phone] us Cadence Swan MD LAB MICROBIOLOGY - GENERAL ORD ERABLES Final Result [facility] [address] [place] [address] from Last 3 Months or Most Recently Relevant to Health Maintenance Insurance [place] [employer] B[employer] [facility]
--- OUTSIDE RECORDS SUMMARY | 2025-05-07 18:21 | XMS_ITS | Encounter Summary ---
Author Organization [facility] Address [address] [place] [address] Phone Care Team Providers Care Juice Tester Name Role Phone Lisa Riggins MD Primary Care Provider [phone] Encounter Details Date Type Department Care Team (Late st Contact Info) Description 07/15/2016 Documentation [facility] [place] Family Medicine [address] [place] [address] Family Medicine, Physician [facility] [address] [place], [place] [address] Social History Tobacco Use Types Packs/Day Years [...] on filedocumented in this encounter Care Teams Juice Tester Relationship Specialty Start Date End Date Lisa Riggins MD [address] [place] [address] DEANNA Devine [address] PCP - General 12/25/16 10/14/21 documented as of this encounter
--- OUTSIDE RECORDS SUMMARY | 2025-05-07 18:21 | XMS_ITS | Encounter Summary ---
Author Organization [facility] Address [address] [place] [address] Phone Care Team Providers Care City Jailer Name Role Phone Lisa Riggins MD Primary Care Provider [phone] Encounter Details Date Type Department Care Team (Late st Contact Info) Description 11/18/2010 Documentation [facility] [place] Family Medicine [address] [place] [address] Family Medicine, Physician [address] [place] [address] Social History Tobacco Use Types [...] on filedocumented in this encounter Care Teams City Jailer Relationship Specialty Start Date End Date Lisa Riggins MD [address] [place] [address] DEANNA Devine [address] PCP - General 12/25/16 10/14/21 documented as of this encounter
--- OUTSIDE RECORDS SUMMARY | 2025-05-07 18:21 | XMS_ITS | Patient Health Record ---
Author Organization [facility] Address [address] [facility] [address] [place] [address] Care Team Providers Care Brand Manager Name Role Phone RONNIE MARTINEZ M.D Primary Care Provider Neena Germain Unavailable [phone] Allergies Allergen (clinical drug ingredient) Drug/Non Drug [...] Status W/U Status Risk Notes Problem Dysmenorrhea ([id number]) Dysmenorrhea, unspecified (N94.6) Active confirmed Vital Signs Temperature 97.9 degrees Fahrenheit 01/12/2025 Blood pressure diastolic 72 mm Hg 01/12/2025 BMI Percentile 29.89 % 01/12/2025 Height 66 in 01/12/2025 Blood pressure systolic 122 mm Hg 01/12/2025 Weight 125 lbs 01/12/2025 BMI 20.17 kg/m2 01/12/2025 Encounters Encounter Location Date Provider Diagnosis [address] [address] 11/24/2024 Neena Danielle Encounter for surveillance of injectable contraceptive Z30.[address] [address] 01/12/2025 Neena Danielle Encounter for gynecological examination (general) (routine) without abnormal findings Z01.419 ; Encounter for surveillance of contraceptives, unspecified Z30.40 ; Dysmenorrhea, unspecified N94.6 and Other specified counseling Z71.[address] [address] 03/05/2025 Neena Danielle Dysmenorrhea, unspecified N94.6 Assessments [...] Provider Name:Neena murdock, 05/09/2025 10:20:00 AM, [address], [place], [address], Provider Name:Neena murdock, 01/18/2026 01:40:00 PM, [address], [place], [address], Insurance Providers Payer Name Payer Address Payer Phone Subscriber Number Group Number Insured Name Patient Relationship to Insured Coverage Start Date Coverage End Date BLUE BENEFIT [employer] [facility] [address] [address] [place] [address] [id number] BATSHEVA MARTÍNEZ Child - Insured has Financial Responsibility Medications Administered Medication Instructions Date of Administration Dosage Notes DEPO PROVERA 11/24/2024 150 mg Medical (General) History Medical History History ICD Code Cardiac murmur, unspecified R01.1 Dysmenorrhea, unspecified N94.6
--- OUTSIDE RECORDS SUMMARY | 2025-05-07 18:21 | XMS_ITS | Encounter Summary ---
Author Organization [facility] Address [address] [place] [address] Phone Care Team Providers Care Gold Reclaimer Name Role Phone Lisa Riggins MD Primary Care Provider [phone] Encounter Details Date Type Department Care Team (Late st Contact Info) Description 10/11/2013 Documentation [facility] [place] [address] [place] [address] Family Medicine, Physician [address] [place], [place] [address] Social History Tobacco Use Types Packs/Day Years [...] on filedocumented in this encounter Care Teams Gold Reclaimer Relationship Specialty Start Date End Date Lisa Riggins MD [address] [place] [address] DEANNA Devine [address] PCP - General 12/25/16 10/14/21 documented as of this encounter
--- OUTSIDE RECORDS SUMMARY | 2025-05-07 18:21 | XMS_ITS | Encounter Summary ---
Author Organization [facility] Address [address] [place] [address] Care Team Providers Care Head Bookkeeper Name Role Phone Lisa Riggins MD Primary Care Provider [phone] Reason for Visit * Reason Comments Medication Refill Encounter Details Date Type Department Care Team (Late st Contact Info) Description 10/19/2021 Refill [facility], Department of Nephrology [address] [place] [phone] Amor Marti MD [address] [facility] [place] [address] Calculus of kidney; Vitamin D deficiency Social [...] deficiency documented in this encounter Care Teams Head Bookkeeper Relationship Specialty Start Date End Date Lisa Riggins MD [address] [place] [address] [address] DEANNA QUEZADA [address] PCP - General General Pediatrics 02/24/21 documented as of this encounter
--- OUTSIDE RECORDS SUMMARY | 2025-05-07 18:21 | XMS_ITS | Encounter Summary ---
Author Organization [facility] Address [address] [place] [address] Phone Care Team Providers Care Mapping Technician Name Role Phone Lisa Riggins MD Primary Care Provider [phone] Encounter Details Date Type Department Care Team (Late st Contact Info) Description 11/18/2010 Documentation [facility] [place] [address] [place] [address] Family Medicine, Physician [address] [place] [address] Social History Tobacco Use Types [...] on filedocumented in this encounter Care Teams Mapping Technician Relationship Specialty Start Date End Date Lisa Riggins MD [address] [place] [address] DEANNA Devine [address] PCP - General 12/25/16 10/14/21 documented as of this encounter
--- OUTSIDE RECORDS SUMMARY | 2025-05-07 18:21 | XMS_ITS | Encounter Summary ---
Author Organization [facility] Address [address] [place] [address] Phone Care Team Providers Care Senior Accounting Manager Name Role Phone Lisa Riggins MD Primary Care Provider [phone] Encounter Details Date Type Department Care Team (Late st Contact Info) Description 11/09/2011 Documentation [facility] [place] [address] [place] [address] Family Medicine, Physician [address] [place], [place] [address] Social History Tobacco Use Types Packs/Day Years [...] filedocumented in this encounter Care Teams Senior Accounting Manager Relationship Specialty Start Date End Date Lisa Riggins MD [address] [place] [address] DEANNA Devine [address] PCP - General 12/25/16 10/14/21 documented as of this encounter
== END 2025-05-07 15:11 | disposition home or self-care (01) ==
LOC: HO.US 15:10
PROVIDERS: PCP Nurse Practitioner Family; Visit Provider Obstetrics & Gynecology Gynecology
DX: N94.6 Dysmenorrhea, unspecified (principal)
CPT/HCPCS: 76857

== ENCOUNTER → 2025-05-07 15:16 | Outpatient (BNV) | payer OTHER, SELFPAY | PROVIDERS: PCP Nurse Practitioner Family; Visit Provider Radiology Diagnostic Radiology | DX: N94.6 Dysmenorrhea, unspecified (principal) | CPT/HCPCS: 76857 ==

== ENCOUNTER → 2025-05-08 09:39 | Outpatient (REF) | payer OTHER, SELFPAY ==
--- OUTSIDE RECORDS SUMMARY | 2025-05-04 08:00 | XMS_ITS ---
Author Organization [facility] Address [address] [facility] [address] [place] [address] Care Team Providers Care Application Systems Architect Name Role Phone RONNIE MARTINEZ M.D Primary Care Provider Neena Germain Unavailable [phone] REASON FOR VISIT ULTRA - TRANS ABDOMINAL ONLY Encounters Encounter Location Date Provider Diagnosis [facility] [employer] [address] [address] 05/04/2025 Neena Danielle Plan Of Treatment Next Appt Details Provider Name:Neena Grey Ermasirena nilayionlyndon, 05/09/2025 10:20:00 AM, [address] [facility], [facility] [address], [place], [address], Provider Name:Neena murdock, 01/18/2026 01:40:00 PM, [address] [place] [address], [facility] [address], [place], [address], Progress Notes * MARYA MARTÍNEZOB:2005 (20 yo F)Acc No.[id number]:05/04/2025 PROGRESS NOTES Patient: ERNESTO IVY Appointment Provider: Lyndon Danielle M.D. :2005 A ge:20 Y S ex:Female Date:05/04/2025 Address:[address] [place] [address] [place] Pcp:RONNIE MARTINEZ M.D Subjective: * Chief Complaints: * 1 . ULTRA - TRANS ABDOMINAL ONLY. * Medical History: Objective: * Vitals: Assessment: Plan: * Treatment: * Images: Billing Information: * Visit Code: * Procedure Codes: * Electronic signature of Mateusz Danielle MD on 05/08/2025 at 10:29 AM EST Sign off status: Pending * Appointment Provider: Lyndon Danielle M.D. Date: 07/05/2024 Generated for Ramon south/Maria Elena/Leslee on: 07/09/2024 10:29 AM EST
--- NOTE | 2025-05-08 09:42 | CA_ITS ---
Transthoracic Echocardiogram Patient (Last, First, Middle): Carmel Lara, Gender: F Date of : 2005 Age: 20 Procedure Date: 05/08/2025 Procedure Type: Transthoracic Echocardiogram Location: OP Height: 167. cm Weight: 57.15 kg BSA: 1.64 m2 Heart Rate: 90 bpm BP: 100 / 55 mmHg Airport Skilled Maintenance Supervisor: JAYDA Florez MD: Bryan Gamino MD Glass Ribbon Machine Operator Assistant: Grupo Parker MD Symptoms: R00.2 - Palpitations Study Quality: Fair/Lung artifact ECG Rhythm: Sinus Conclusions: - Essentially normal study Findings Left Ventricle Normal left ventricular size, thickness, and systolic function. The visually estimated ejection fraction is between 60-65%. Spectral Doppler is indicative of a normal filling pattern. Right Ventricle Normal right ventricular cavity size and systolic function. Atria The left atrium is normal in size. Interatrial shunt cannot be excluded. The right atrium was not well visualized. Aortic Valve Normal aortic valve structure and function. There is no aortic valve stenosis. There is no aortic valve regurgitation. Mitral Valve Normal mitral valve structure and function. There is trace mitral valve regurgitation. There is no mitral valve stenosis. Pulmonic Valve The pulmonic valve is likely normal. Tricuspid Valve Normal tricuspid valve structure. Tricuspid regurgitation envelope is inadequate for calculation of right ventricular systolic pressure. Normal right atrial pressure. Great Vessels All visible segments of the aorta are normal in size. The pulmonary artery was not well visualized. Venous The inferior vena cava is normal in size and collapses greater than 50% with inspiration. Pericardium/Pleural There is no evidence of pericardial effusion. Prior Study Comparison No prior study available for comparison. Measurements 2D Linear Measurements IVSd: 0.74 0.6-0.9/0.6-1.0 cm LVIDd: 3.86 3.9-5.3/4.2-5.9 cm LVIDd Index: 2.35 2.4-3.2/2.2-3.1 cm/m2 LVIDs: 2.64 2.0-3.6 cm LVPWd: 0.79 0.7-1.1 cm LA Diam: 1.90 2.7-3.8/3.0-4.0 cm LAIDs Index: 1.16 1.5-2.3 cm/m2 LV Mass: 102.59 67-162/88-224 g LV Mass Index: 62.55 43-95/49-115 g/m2 LVOT Diam: 2.00 3.0+(-)1.3 cm 2D Systolic Function EF 4C: 58.20 >55% EF 2C: 67.30 >55% EF BiP: 63.70 >55% Mitral Valve MV Pk E: 0.64 MV PK A: 0.54 MV Decel Time: 306.00 E/A: 1.20 E'Lateral: 14.00 E'Medial: 7.72 E/E' Med: 8.30 E/E' Lat: 4.60 PHT: 90.00 MVA PHT: 2.44 Decel Amador: 2.10 Aortic Valve AoV Pk Roberto: 1.09 AoV Mn Roberto: 0.75 AoV VTI: 0.20 AoV Pk Grad: 5.00 Aov Mn Grad: 3.00 MARY Cont.VTI: 2.26 LVOT LVOT Pk Roberto: 0.91 LVOT Mn Roberto: 0.61 LVOT VTI: 0.14 LVOT Pk Grad: 3.00 LVOT Mn Grad: 2.00 LVOT Diam: 2.00 LVOT Area: 3.14 Diastolic Function MV Pk E: 0.64 MV Pk A: 0.54 E/A: 1.20 E'Medial: 7.72 E/E' Med: 8.30 E' Laterial: 14.00 E/E' Lat: 4.60 Right Ventricle TAPSE (mm): 19.70 TVS' Roberto: 14.90 Tricuspid Valve RA Press: 3.00 Great Vessels Aorta Sinus of Valsalva: 2.60 2.0-3.5 cm Ao Asc: 2.40 2.1-3.4 cm Ao Arch: 2.10 Pulmonary Veins Pulm Vein S/D 1.00 Pulmonary Valve PV Pk Roberto: 1.51 Peak PV Grad: 9.00 Updated in Other Vendor System with Status of Final Grupo Parker MD electronically signed on 05/09/2025 1:51:37 PM with status of Final
--- OUTSIDE RECORDS SUMMARY | 2025-05-08 10:29 | XMS_ITS | Encounter Summary ---
Author Organization [facility] Address [address] [place] [address] Phone Care Team Providers Care Magazine Journalist Name Role Phone Lisa Riggins MD Primary Care Provider +1 [phone] Encounter Details Date Type Department Care Team (Late st Contact Info) Description 11/10/2016 Documentation [facility] [place] Family Medicine [address] [place] [address] Family Medicine, Physician [facility] [place], [place] [address] Social History Tobacco Use Types Packs/Day Years [...] on filedocumented in this encounter Care Teams Magazine Journalist Relationship Specialty Start Date End Date Lisa Riggins MD [address] [place] [address] DEANNA Devine [address] PCP - General 12/25/16 10/14/21 documented as of this encounter
--- OUTSIDE RECORDS SUMMARY | 2025-05-08 10:29 | XMS_ITS | Encounter Summary ---
Author Organization [facility] Address [address] [place] [address] Phone Care Team Providers Care Fountain Operator Name Role Phone Lisa Riggins MD Primary Care Provider +1 [phone] Encounter Details Date Type Department Care Team (Late st Contact Info) Description 10/19/2014 Documentation [facility] [place] Family Medicine [address] [place] [address] Family Medicine, Physician [address] [place], [place] [address] Social History Tobacco Use Types Packs/Day Years [...] on filedocumented in this encounter Care Teams Fountain Operator Relationship Specialty Start Date End Date Lisa Riggins MD [address] [place] [address] DEANNA Devine [address] PCP - General 12/25/16 10/14/21 documented as of this encounter
--- OUTSIDE RECORDS SUMMARY | 2025-05-08 10:29 | XMS_ITS | Encounter Summary ---
Author Organization [facility] Address [address] [place] [address] Phone Care Team Providers Care Director Title Name Role Phone Lisa Riggins MD Primary Care Provider [phone] Encounter Details Date Type Department Care Team (Late st Contact Info) Description 09/09/2015 Documentation [facility] [place] Family Medicine [address] [place] [address] Family Medicine, Physician [facility] [place], [place] [address] Social History Tobacco Use Types Packs/Day Years [...] on filedocumented in this encounter Care Teams Director Title Relationship Specialty Start Date End Date Lisa Riggins MD [address] [place] [address] DEANNA Devine [address] PCP - General 12/25/16 10/14/21 documented as of this encounter
--- OUTSIDE RECORDS SUMMARY | 2025-05-08 10:29 | XMS_ITS | Encounter Summary ---
Author Organization [facility] Address [address] [place] [address] Phone Care Team Providers Care Leaf Conditioner Helper Name Role Phone Lisa Riggins MD Primary Care Provider [phone]- [phone] Encounter Details Date Type Department Care Team (Late st Contact Info) Description 06/11/2015 Documentation [facility] [place] Family Medicine [address] [place] [address] Family Medicine, Physician [facility] [place]where [place], [place] [address] Social History Tobacco Use Types Packs/Day Years [...] on filedocumented in this encounter Care Teams Leaf Conditioner Helper Relationship Specialty Start Date End Date Lisa Riggins MD [address] [place] [address] DEANNA Devine [address] PCP - General 12/25/16 10/14/21 documented as of this encounter
--- OUTSIDE RECORDS SUMMARY | 2025-05-08 10:29 | XMS_ITS | Encounter Summary ---
Author Organization [facility] Address [address] [place] [address] Phone Care Team Providers Care Converting Supervisor Name Role Phone Lisa Riggins MD Primary Care Provider [phone] Encounter Details Date Type Department Care Team (Late st Contact Info) Description 02/08/2014 Documentation [facility] [place] Family Medicine [address] [place] [address] Family Medicine, Physician [facility] [place] [place], [place] [address] Social History Tobacco Use Types Packs/Day Years [...] on filedocumented in this encounter Care Teams Converting Supervisor Relationship Specialty Start Date End Date Lisa Riggins MD [address] [place] [address] DEANNA Devine [address] PCP - General 12/25/16 10/14/21 documented as of this encounter
--- OUTSIDE RECORDS SUMMARY | 2025-05-08 10:29 | XMS_ITS | Encounter Summary ---
Author Organization [facility] Address [address] [place] [address] Phone Care Team Providers Care City Marshal Name Role Phone Lisa Riggins MD Primary Care Provider [phone] Encounter Details Date Type Department Care Team (Late st Contact Info) Description 10/28/2015 Documentation [facility] [place] Family Medicine [address] [place] [address] Family Medicine, Physician [facility] [place], [place] [address] Social History Tobacco Use Types Packs/Day Years [...] filedocumented in this encounter Care Teams City Marshal Relationship Specialty Start Date End Date Lisa Riggins MD [address] [place] [address] DEANNA Devine [address] PCP - General 12/25/16 10/14/21 documented as of this encounter
--- OUTSIDE RECORDS SUMMARY | 2025-05-08 10:29 | XMS_ITS | Encounter Summary ---
Author Organization [facility] Address [address] [place] [address] Phone Care Team Providers Care Public Finance Specialist Name Role Phone Lisa Riggins MD Primary Care Provider +[phone] Encounter Details Date Type Department Care Team (Late st Contact Info) Description 07/15/2016 Documentation [facility] [place] Family Medicine [address] [place] [address] Family Medicine, Physician [facility] [place], [place] [address] Social History Tobacco Use Types Packs/Day Years [...] filedocumented in this encounter Care Teams Public Finance Specialist Relationship Specialty Start Date End Date Lisa Riggins MD [address] [place] [address] DEANNA Devine [address] PCP - General 12/25/16 10/14/21 documented as of this encounter
--- OUTSIDE RECORDS SUMMARY | 2025-05-08 10:29 | XMS_ITS | Encounter Summary ---
Author Organization [facility] Address [address] [place] [address] Phone Care Team Providers Care Land Surveying Party Chief Name Role Phone Lisa Riggins MD Primary Care Provider [phone] Encounter Details Date Type Department Care Team (Late st Contact Info) Description 10/04/2015 Documentation [facility] [place] [address] [place] [address] Family Medicine, Physician [facility] [place] [address] Social History Tobacco Use Types [...] on filedocumented in this encounter Care Teams Land Surveying Party Chief Relationship Specialty Start Date End Date Lisa Riggins MD [address] [place] [address] DEANNA Devine [address] PCP - General 12/25/16 10/14/21 documented as of this encounter
--- OUTSIDE RECORDS SUMMARY | 2025-05-08 10:29 | XMS_ITS | Encounter Summary ---
Author Organization [facility] Address [address] [place] [address] Phone Care Team Providers Care Contact Lens Polisher Name Role Phone Lisa Riggins MD Primary Care Provider [phone] Encounter Details Date Type Department Care Team (Late st Contact Info) Description 11/10/2016 Documentation [facility] [place] Family Medicine [address] [place] [address] Family Medicine, Physician [facility] [place], [place] [address] Social History Tobacco Use Types Packs/Day Years [...] filedocumented in this encounter Care Teams Contact Lens Polisher Relationship Specialty Start Date End Date Lisa Riggins MD [address] [place] [address] DEANNA Devine [address] PCP - General 12/25/16 10/14/21 documented as of this encounter
--- OUTSIDE RECORDS SUMMARY | 2025-05-08 10:29 | XMS_ITS | Encounter Summary ---
Author Organization [facility] Address [address] [place] [address] Phone Care Team Providers Care Physician Office Rep Name Role Phone Lisa Riggins MD Primary Care Provider [phone] Encounter Details Date Type Department Care Team (Late st Contact Info) Description 02/08/2014 Documentation [facility] [place] [address] [place] [address] Family Medicine, Physician [facility] [place] [place], [place] [address] Social History Tobacco Use Types Packs/Day Years [...] on filedocumented in this encounter Care Teams Physician Office Rep Relationship Specialty Start Date End Date Lisa Riggins MD [address] [place] [address] DEANNA Devine [address] PCP - General 12/25/16 10/14/21 documented as of this encounter
--- OUTSIDE RECORDS SUMMARY | 2025-05-08 10:29 | XMS_ITS | Encounter Summary ---
Author Organization [facility] Address [address] [place] [address] Phone Care Team Providers Care Picker Name Role Phone Lisa Riggins MD Primary Care Provider [phone]- [phone] Encounter Details Date Type Department Care Team (Late st Contact Info) Description 10/25/2015 Documentation [facility] [place] [address] [place] [address] Family Medicine, Physician [address] [place], [place] [address] Social History Tobacco Use Types Packs/Day Years [...] on filedocumented in this encounter Care Teams Picker Relationship Specialty Start Date End Date Lisa Riggins MD [address] [place] [address] DEANNA Devine [address] PCP - General 12/25/16 10/14/21 documented as of this encounter
--- OUTSIDE RECORDS SUMMARY | 2025-05-08 10:29 | XMS_ITS | Encounter Summary ---
Author Organization [facility] Address [address] [place] [address] Phone Care Team Providers Care Mottler Machine Feeder Name Role Phone Lisa Riggins MD Primary Care Provider [phone] Encounter Details Date Type Department Care Team (Late st Contact Info) Description 10/19/2014 Documentation [facility] [place] Family Medicine [address] [place] [address] Family Medicine, Physician [address] [place], [place] [address] Social History Tobacco Use Types Packs/Day Years [...] on filedocumented in this encounter Care Teams Mottler Machine Feeder Relationship Specialty Start Date End Date Lisa Riggins MD [address] [place] [address] DEANNA Devine [address] PCP - General 12/25/16 10/14/21 documented as of this encounter
--- OUTSIDE RECORDS SUMMARY | 2025-05-08 10:29 | XMS_ITS | Encounter Summary ---
Author Organization [facility] Address [address] [place] [address] Phone Care Team Providers Care Senior Service Technician Name Role Phone Lisa Riggins MD Primary Care Provider [phone]- [phone] Encounter Details Date Type Department Care Team (Late st Contact Info) Description 12/03/2014 Documentation [facility] [place] [address] [place] [address] Family Medicine, Physician [address] [place], [place] [address] Social History Tobacco Use Types Packs/Day Years [...] filedocumented in this encounter Care Teams Senior Service Technician Relationship Specialty Start Date End Date Lisa Riggins MD [address] [place] [address] DEANNA Devine [address] PCP - General 12/25/16 10/14/21 documented as of this encounter
--- OUTSIDE RECORDS SUMMARY | 2025-05-08 10:29 | XMS_ITS | Encounter Summary ---
Author Organization [facility] Address [address] [place] [address] Phone Care Team Providers Care Combat Systems Engineer Name Role Phone Lisa Riggins MD Primary Care Provider [phone] Encounter Details Date Type Department Care Team (Late st Contact Info) Description 11/10/2016 Documentation [facility] [place] Family Medicine [address] [place] [address] Family Medicine, Physician [facility] [place], [place] [address] Social History Tobacco Use Types Packs/Day Years [...] on filedocumented in this encounter Care Teams Combat Systems Engineer Relationship Specialty Start Date End Date Lisa Riggins MD [address] [place] [address] DEANNA Devine [address] PCP - General 12/25/16 10/14/21 documented as of this encounter
--- OUTSIDE RECORDS SUMMARY | 2025-05-08 10:29 | XMS_ITS | Encounter Summary ---
Author Organization [facility] Address [address] [place] [address] Phone Care Team Providers Care Epic Cadence Analyst Name Role Phone Lisa Riggins MD Primary Care Provider [phone] Encounter Details Date Type Department Care Team (Late st Contact Info) Description 09/04/2015 Documentation [facility] [place] Family Medicine [address] [place] [address] Family Medicine, Physician [facility] [place], [place] [address] Social History Tobacco Use Types Packs/Day Years [...] on filedocumented in this encounter Care Teams Epic Cadence Analyst Relationship Specialty Start Date End Date Lisa Riggins MD [address] [place] [address] DEANNA Devine [address] PCP - General 12/25/16 10/14/21 documented as of this encounter
--- OUTSIDE RECORDS SUMMARY | 2025-05-08 10:29 | XMS_ITS | Encounter Summary ---
Author Organization [facility] Address [address] [place] [address] Phone Care Team Providers Care Pediatric Speech Language Pathologist Name Role Phone Lisa Riggins MD Primary Care Provider [phone] Encounter Details Date Type Department Care Team (Late st Contact Info) Description 12/31/2016 Conversion Encounter [facility] [place] [address] [place] [address] Social History Tobacco Use Types Packs/Day Years [...] on filedocumented in this encounter Care Teams Pediatric Speech Language Pathologist Relationship Specialty Start Date End Date Lisa Riggins MD [address] [place] [address] PCP - General 12/25/16 10/14/21 documented as of this encounter
--- OUTSIDE RECORDS SUMMARY | 2025-05-08 10:30 | XMS_ITS | Encounter Summary ---
Author Organization [facility] Address [address] [place] [address] Phone Care Team Providers Care Audio/Video Technician Name Role Phone Lisa Riggins MD Primary Care Provider [phone] Encounter Details Date Type Department Care Team (Late st Contact Info) Description 03/22/2013 Documentation [facility] [place] [address] [place] [address] Family Medicine, Physician [address] [place], [place] [address] Social History Tobacco Use Types Packs/Day Years [...] on filedocumented in this encounter Care Teams Audio/Video Technician Relationship Specialty Start Date End Date Lisa Riggins MD [address] [place] [address] DEANNA Devine [address] PCP - General 12/25/16 10/14/21 documented as of this encounter
--- OUTSIDE RECORDS SUMMARY | 2025-05-08 10:30 | XMS_ITS | Encounter Summary ---
Author Organization [facility] Address [address] [place] [address] Phone Care Team Providers Care Tank Washer Name Role Phone Lisa Riggins MD Primary Care Provider [phone] Encounter Details Date Type Department Care Team (Late st Contact Info) Description 03/18/2011 Documentation [facility] [place] [address] [place] [address] Family Medicine, Physician [address] [place], [place] [address] Social History Tobacco Use Types Packs/Day Years [...] on filedocumented in this encounter Care Teams Tank Washer Relationship Specialty Start Date End Date Lisa Riggins MD [address] [place] [address] DEANNA Devine [address] PCP - General 12/25/16 10/14/21 documented as of this encounter
--- OUTSIDE RECORDS SUMMARY | 2025-05-08 10:30 | XMS_ITS | Encounter Summary ---
Author Organization [facility] Address [address] [place] [address] Care Team Providers Care Numerical Control Router Operator Name Role Phone Lisa Riggins MD Primary Care Provider [phone]- [phone] Reason for Visit * Reason Comments Medication Refill Encounter Details Date Type Department Care Team (Late st Contact Info) Description 10/19/2021 Refill [facility], Department of Nephrology [address] [place] [phone] Amor Marti MD [address] [facility] [place] [address] Calculus of kidney; Vitamin D deficiency Social [...] deficiency documented in this encounter Care Teams Numerical Control Router Operator Relationship Specialty Start Date End Date Lisa Riggins MD [address] [place] [address] [address] DEANNA QUEZADA [phone] PCP - General General Pediatrics 02/24/21 documented as of this encounter
--- OUTSIDE RECORDS SUMMARY | 2025-05-08 10:30 | XMS_ITS | Clinical Summary ---
Author Organization [facility] Address [address] [place] [address] Care Team Providers Care Radiator Cleaner Name Role Phone Lisa Riggins MD Primary Care Provider [phone]- [phone] Source Comments Please note that some or [...] so, obtain the minor's consent prior to disclosure.[facility] Allergies Active Allergy Reactions Criticality Noted [...] (IRON ORAL) Take by mouth Active vitamin N59-whyrr acid 0.5-1 mg Tablet 0 Refills, Maintenance, [...] be different from the original. Preferred Lab: [facility] [address] [place] [address] p: [phone] f: [phone] Problem Noted Date Diagnosed Date Right nephrolithiasis 10/15/2021 Left nephrolithiasis 04/16/2021 Family History Medical History Relation Name Comments Hypertension Mother Relation Name Status Comments Mother Social History Tobacco Use Types Packs/Day Years Used Date Smoking Tobacco: Never Smokeless Tobacco: Never Tobacco Cessation:Counseling Given: Not Answered Other Needs Answer Date Recorded Anything else about your child you'd like help w [facility]? Not on file 01/29/2023 Share [...] patient's age to complete this topic Insurance [employer] Care Teams Radiator Cleaner Relationship Specialty Start Date End Date Lisa Riggins MD [address] [place] [address] [address] DEANNA QUEZADA [phone] PCP - General General Pediatrics 02/24/21
--- OUTSIDE RECORDS SUMMARY | 2025-05-08 10:30 | XMS_ITS | Encounter Summary ---
Author Organization [facility] Address [address] [place] [address] Phone Care Team Providers Care Websphere Commerce Architect Name Role Phone Lisa Riggins MD Primary Care Provider + [phone] Reason for Visit * Reason Comments Med Refill Encounter Details Date Type Department Care Team (Late st Contact Info) Description 09/30/2021 Refill [facility] [place] [address] [place] [address] Lisa Riggins MD [address] [place] [address] Menses painful Social History Tobacco Use Types [...] Dysmenorrhea documented in this encounter Care Teams Websphere Commerce Architect Relationship Specialty Start Date End Date Lisa Riggins MD [address] [place] [address] DEANNA Devine [address] PCP - General 12/25/16 10/14/21 documented as of this encounter
--- OUTSIDE RECORDS SUMMARY | 2025-05-08 10:30 | XMS_ITS | Encounter Summary ---
Author Organization [facility] Address [address] [place] [address] Phone Care Team Providers Care Pst Manager Name Role Phone Lisa Riggins MD Primary Care Provider [phone] Encounter Details Date Type Department Care Team (Late st Contact Info) Description 11/18/2010 Documentation [facility] [place] Family Medicine [address] [place] [address] Family Medicine, Physician [address] [place] [address] Social History Tobacco Use Types [...] on filedocumented in this encounter Care Teams Pst Manager Relationship Specialty Start Date End Date Lisa Riggins MD [address] [place] [address] DEANNA Devine [address] PCP - General 12/25/16 10/14/21 documented as of this encounter
--- OUTSIDE RECORDS SUMMARY | 2025-05-08 10:30 | XMS_ITS | Encounter Summary ---
Author Organization [facility] Address [address] [place] [address] Phone Care Team Providers Care Science Center Display Builder Name Role Phone Lisa Riggins MD Primary Care Provider [phone] Encounter Details Date Type Department Care Team (Late st Contact Info) Description 10/11/2013 Documentation [facility] [place] [address] [place] [address] Family Medicine, Physician [address] [place], [place] [address] Social History Tobacco Use Types Packs/Day Years [...] on filedocumented in this encounter Care Teams Science Center Display Builder Relationship Specialty Start Date End Date Lisa Riggins MD [address] [place] [address] DEANNA Devine [address] PCP - General 12/25/16 10/14/21 documented as of this encounter
--- OUTSIDE RECORDS SUMMARY | 2025-05-08 10:30 | XMS_ITS | Encounter Summary ---
Author Organization [facility] Address [address] [place] [address] Phone Care Team Providers Care Rock Drill Operator Name Role Phone Lisa Riggins MD Primary Care Provider +[phone] Encounter Details Date Type Department Care Team (Late st Contact Info) Description 11/12/2011 Documentation [facility] [place] [address] [place] [address] Family Medicine, Physician [address] [place], [place] [address] Social History Tobacco Use Types Packs/Day Years [...] on filedocumented in this encounter Care Teams Rock Drill Operator Relationship Specialty Start Date End Date Lisa Riggins MD [address] [place] [address] DEANNA Devine [address] PCP - General 12/25/16 10/14/21 documented as of this encounter
--- OUTSIDE RECORDS SUMMARY | 2025-05-08 10:30 | XMS_ITS | Encounter Summary ---
Author Organization [facility] Address [address] [place] [address] Phone Care Team Providers Care Pipe Changer Name Role Phone Lisa Riggins MD Primary Care Provider [phone]- [phone] Encounter Details Date Type Department Care Team (Late st Contact Info) Description 10/06/2013 Documentation [facility] [place] Family Medicine [address] [place] [address] Family Medicine, Physician [address] [place], [place] [address] Social History Tobacco Use Types Packs/Day Years [...] on filedocumented in this encounter Care Teams Pipe Changer Relationship Specialty Start Date End Date Lisa Riggins MD [address] [place] [address] DEANNA Devine [address] PCP - General 12/25/16 10/14/21 documented as of this encounter
--- OUTSIDE RECORDS SUMMARY | 2025-05-08 10:30 | XMS_ITS | Encounter Summary ---
Author Organization [facility] Address [address] [place] [address] Phone Care Team Providers Care Ceiling Cleaner Name Role Phone Lisa Riggins MD Primary Care Provider +[phone] Encounter Details Date Type Department Care Team (Late st Contact Info) Description 11/18/2010 Documentation [facility] [place] Family Medicine [address] [place] [address] Family Medicine, Physician [address] [place] [address] Social History Tobacco Use Types [...] on filedocumented in this encounter Care Teams Ceiling Cleaner Relationship Specialty Start Date End Date Lisa Riggins MD [address] [place] [address] DEANNA Devine [address] PCP - General 12/25/16 10/14/21 documented as of this encounter
--- OUTSIDE RECORDS SUMMARY | 2025-05-08 10:30 | XMS_ITS | Encounter Summary ---
Author Organization [facility] Address [address] [place] [address] Phone Care Team Providers Care Adobe Layer Name Role Phone Lisa Riggins MD Primary Care Provider [phone] Encounter Details Date Type Department Care Team (Late st Contact Info) Description 11/09/2011 Documentation [facility] [place] [address] [place] [address] Family Medicine, Physician [address] [place], [place] [address] Social History Tobacco Use Types Packs/Day Years [...] on filedocumented in this encounter Care Teams Adobe Layer Relationship Specialty Start Date End Date Lisa Riggins MD [address] [place] [address] DEANNA Devine [address] PCP - General 12/25/16 10/14/21 documented as of this encounter
--- OUTSIDE RECORDS SUMMARY | 2025-05-08 10:30 | XMS_ITS | Patient Health Record ---
Author Organization [facility] Address [address] [place] [address] Care Team Providers Care Utility Mechanic Name Role Phone RONNIE MARTINEZ M.D Primary Care Provider Neena Germain Unavailable [phone] Allergies Allergen (clinical drug ingredient) Drug/Non Drug [...] Status W/U Status Risk Notes Problem Dysmenorrhea ([id number]) Dysmenorrhea, unspecified (N94.6) Active confirmed Vital Signs Temperature 97.9 degrees Fahrenheit 01/12/2025 Blood pressure diastolic 72 mm Hg 01/12/2025 Height 66 in 01/12/2025 BMI Percentile 29.89 % 01/12/2025 Blood pressure systolic 122 mm Hg 01/12/2025 Weight 125 lbs 01/12/2025 BMI 20.17 kg/m2 01/12/2025 Encounters Encounter Location Date Provider Diagnosis [address] [address] 11/24/2024 Neena Danielle Encounter for surveillance of injectable contraceptive Z30.[address] [address] 01/12/2025 Neena Danielle Encounter for gynecological examination (general) (routine) without abnormal findings Z01.419 ; Encounter for surveillance of contraceptives, unspecified Z30.40 ; Dysmenorrhea, unspecified N94.6 and Other specified counseling Z71.[address] [address] 03/05/2025 Neena Danielle Dysmenorrhea, unspecified N94.6 Assessments [...] Provider Name:Neena murdock, 05/09/2025 10:20:00 AM, [address], [place], [address], Provider Name:Neena murdock, 01/18/2026 01:40:00 PM, [address], [place], [address], Insurance Providers Payer Name Payer Address Payer Phone Subscriber Number Group Number Insured Name Patient Relationship to Insured Coverage Start Date Coverage End Date [employer] [facility] [address] [address] [place] [address] [id number] BATSHEVA MARTÍNEZ Child - Insured has Financial Responsibility Medications Administered Medication Instructions Date of Administration Dosage Notes DEPO PROVERA 11/24/2024 150 mg Medical (General) History Medical History History ICD Code Cardiac murmur, unspecified R01.1 Dysmenorrhea, unspecified N94.6
--- OUTSIDE RECORDS SUMMARY | 2025-05-08 10:30 | XMS_ITS | Clinical Summary ---
Author Organization [facility] Address [address] [place] [address] Phone Care Team Providers Care Instrumentation Designer Name Role Phone Unavailable Primary Care Provider [...] muscle every 3 (three) months. 12/03/2022 Active Yolo Saline Nasal gelIndications: Epistaxis Apply nasally nightly [...] Plan (09/27/2023 11:51 AM EDT): [place] water systems [place] [facility] [place] Has had a few LithoL[employer] studies done (24 hr urine). Has f/u appt scheduled. 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 For over a year. Has a lot [...] autism - will wait for OT and [facility] to weigh in. Dysmenorrhea, unspecified 12/13/2019 Overview (01/29/2022): Very painful and heavy menses every other month. On DepoProvera since 04/2021, rx by [facility] at [facility] Doing very well. Assessment & Plan (09/25/2024 2:43 PM EDT): On DepoProvera since 04/2021, rx by [facility]. Doing very well. Gets a little bleeding just when due for next shot, no significant cramping. Assessment & Plan (09/27/2023 11:51 AM EDT): On DepoProvera since 04/2021, rx by [facility]. Doing very well. Gets a little bleeding just when due for next shot, no significant cramping. Assessment & Plan (01/29/2022 1:59 PM EDT): On DepoProvera since 04/2021, rx by [facility] at [facility] Doing very well. Gets a little bleeding [...] back, clothing textures, foods. Had eval at [facility] Waiting on neuropsych testing 01/29/2022 Main concern is possible autism spectrum - on wait list for neuropsych eval at [facility] For over a year. Has a [...] not getting OT, awaiting neuropsych eval at [facility] - on wait list x > 1 [...] Additional history exists Procedures * Due to [facility] law, this organization might not be sharing sensitive test results. Procedure Name Priority Date/Time Associated Diagnosis Comments CHLAMYDIA AND GONORRHEA, AMPLIFIED Routine 09/25/2024 2:29 PM EDT Special screening examination for chlamydial disease from Last 3 Months or Most Recently Relevant to Health Maintenance Results * Due to [place] inexio law, this organization might not be sharing sensitive test results. * Chlamydia and Gonorrhoea, Amplified (09/25/2024 2:29 PM EDT) C trach JASWINDER Negative Negative [facility] N gonorrhoeae JASWINDER Negative Negative [facility] Urine (Urine) 09/25/2024 2:2 9 PM EDT 09/25/2024 Comment:Urine Narrative [facility] - 09/27/2024 6:05 PM EDT Performed at: 01 - [address], [address], [place], [place] [id number] Sas Bi Developer: Dean Wright MD, Phone: [phone] us Cadence Swan MD LAB MICROBIOLOGY - GENERAL ORD ERABLES Final Result [facility] [address] [place] [address] from Last 3 Months or Most Recently Relevant to Health Maintenance Insurance [employer] [place] [employer] [facility]
--- OUTSIDE RECORDS SUMMARY | 2025-05-08 10:30 | XMS_ITS | Encounter Summary ---
Author Organization [facility] Address [address] [place] [address] Phone Care Team Providers Care Brewer Helper Name Role Phone Lisa Riggins MD Primary Care Provider [phone] Encounter Details Date Type Department Care Team (Late st Contact Info) Description 03/03/2012 Documentation [facility] [place] [address] [place] [address] Family Medicine, Physician [address] [place], [place] [address] Social History Tobacco Use Types Packs/Day Years [...] on filedocumented in this encounter Care Teams Brewer Helper Relationship Specialty Start Date End Date Lisa Riggins MD [address] [place] [address] DEANNA Devine [address] PCP - General 12/25/16 10/14/21 documented as of this encounter
--- OUTSIDE RECORDS SUMMARY | 2025-05-08 10:30 | XMS_ITS | Encounter Summary ---
Author Organization [facility] Address [address] [place] [address] Phone Care Team Providers Care Consumer Marketing Specialist Name Role Phone Lisa Riggins MD Primary Care Provider [phone] Encounter Details Date Type Department Care Team (Late st Contact Info) Description 06/03/2012 Documentation [facility] [place] Family Medicine [address] [place] [address] Family Medicine, Physician [address] [place], [place] [address] Social History Tobacco Use Types Packs/Day Years [...] on filedocumented in this encounter Care Teams Consumer Marketing Specialist Relationship Specialty Start Date End Date Lisa Riggins MD [address] [place] [address] DEANNA Devine [address] PCP - General 12/25/16 10/14/21 documented as of this encounter
== END ==
LOC: HO.CARD 09:39
PROVIDERS: PCP Nurse Practitioner Family; Visit Provider Internal Medicine Cardiovascular Disease
DX: R00.2 Palpitations (principal)
CPT/HCPCS: 93242; 93306

== ENCOUNTER → 2025-05-08 09:42 | Outpatient (BNV) | payer OTHER, SELFPAY | PROVIDERS: PCP Nurse Practitioner Family; Visit Provider Internal Medicine Cardiovascular Disease | DX: R00.2 Palpitations (principal) | CPT/HCPCS: 93306 ==